=== PATIENT | female | born 1950 | race Caucasian/White ===

== ENCOUNTER → 2018-01-12 11:51 | Outpatient (CLI) | payer MEDICARE, MEDICAID, SELFPAY ==
[2018-01-12 12:30] LABS: Add Manual Diff / Slide Review NO; Basophils Percent Auto 0.6 % (0-2); Eosinophils Percent Auto 2.6 % (2-4); Hematocrit 44.4 % (36-46); Hemoglobin 14.8 g/dL (12.0-16.0); Lymphocytes Percent Auto 18.3 % (25-40); Mean Corpuscular HGB Conc 33.4 % (30-36); Mean Corpuscular Hemoglobin 28.8 PG (26-34); Mean Corpuscular Volume 86.1 fL (80-100); Monocytes Percent Auto 9.4 % (3-14); Neutrophils Absolute Auto 5400 /uL (3000-5900); Neutrophils Percent Auto 69.1 % (50-75); Platelet Count 293 X10^3/uL (150-400); Red Blood Cell Count 5.16 X10^6/uL (4.0-5.2); Red Cell Distribution Width 15.3 % (11.6-14.8); White Blood Cell Count 7.8 X10^3/uL (4.5-11.0)
[2018-01-12 12:51] LABS: Alanine Aminotransferase 25 IU/L (9-52); Albumin Globulin Ratio 1.3 (1.0-2.8); Alkaline Phosphatase 114 U/L (38-126); Aspartate Aminotransferase 17 IU/L (14-36); BUN Creatinine Ratio 21.4 (6-22); Bilirubin Total 0.6 mg/dL (0.2-1.3); Blood Urea Nitrogen 15 mg/dL (7-17); Calcium 9.7 mg/dL (8.4-10.2); Carbon Dioxide 28 mmol/L (22-32); Chloride 105 mmol/L (98-107); Estimated Glomerular Filt Rate > 60.0 mL/min (>60); Glucose 106 mg/dL (80-110); HEMOLYSIS < 15 (0-50); Potassium 4.3 mmol/L (3.4-5.1); Sodium 142 mmol/L (137-145)
[2018-01-12 13:16] LABS: TSH w/ Reflex to FT4 2.33 uIU/mL (0.47-4.68)
== END ==
PROVIDERS: PCP Family Medicine; Visit Provider Family Medicine
DX: K04.7 Periapical abscess without sinus (principal); R11.2 Nausea with vomiting, unspecified; R23.2 Flushing
CPT/HCPCS: 36415; 80053; 84443; 85025

== ENCOUNTER → 2018-01-13 09:56 | Outpatient (CLI) | payer MEDICARE, MEDICAID, SELFPAY ==
--- NOTE | 2018-01-13 09:58 | DI.US.S_ITS ---
PROCEDURE: US ABDOMEN COMPLETE INDICATIONS: Abdominal pain TECHNIQUE: Real-time scanning was performed of the abdominal and retroperitoneal organs, with image documentation. COMPARISON: [facility], [place], PET/CT SKULL BASE TO MID THIGH, 10/11/2016, 9:15. [facility], [place], ABDOMEN COMPLETE, 10/11/2016, 7:49. [facility], CT, CHEST/ABD/PEL WITHOUT CONTRAST, 09/11/2016, 12:57. FINDINGS: Liver: Liver is normal in size and homogeneous in echotexture. Solid, hypoechoic mass present within the lateral aspect of the left hepatic lobe measuring 2.1 x 1.9 x 1.5 cm. Gallbladder: Mild amount of sludge and probable gravel noted within the gallbladder. No other wall thickening. Biliary ducts: Intrahepatic bile ducts are non-dilated. Extrahepatic bile duct caliber measures 5.0 mm. Normal is 6-7 mm or less in diameter, or 10 mm or less post-cholecystectomy. Pancreas: Visualized portions of the pancreas are sonographically normal. Spleen: Spleen is normal in size and homogeneous in echotexture. Kidneys: Kidneys are normal in size and echotexture. Right kidney measures 10.4 cm long; left kidney measures 10.1 cm long. No hydronephrosis or nephrolithiasis. No solid masses. Aorta: Visualized aorta is normal in caliber at less than 3 cm. Iliacs: Proximal common iliac arteries are normal in caliber at less than 2.5 cm. IVC: Intrahepatic inferior vena cava is patent. Miscellaneous: No free abdominal fluid. IMPRESSION: 1. Solid hypoechoic lateral left hepatic lobe mass measuring up to 2.1 cm. Neoplastic process cannot be excluded. Recommend hepatic protocol CT or MRI for further assessment. 2. Gallbladder sludge and gravel present. Dictated by: Calderon Whatley [facility] Interpreted: Liberty Meehan MD on 01/13/2018 at 12:58 Approved by: Liberty Meehan M.D. on 01/13/2018 at 17:56
== END ==
PROVIDERS: Family Provider Family Medicine; PCP Family Medicine; Visit Provider Family Medicine
DX: R10.9 Unspecified abdominal pain (principal); K76.9 Liver disease, unspecified
CPT/HCPCS: 76700

== ENCOUNTER 2018-01-25 06:44 | Emergency (ER) | payer MEDICARE, MEDICAID, SELFPAY ==
[2018-01-25 06:56] VITALS: BP 137/86; PULSE 94; RESP 18; TEMP 36.9; O2SAT 98; BMI 27.3
--- NOTE | 2018-01-25 07:28 | ED.EAR ---
HPI - Ear Problem General Chief complaint: Ear Stated complaint: RIGHT EAR PAIN Time Seen by Provider: 01/25/18 07:06 Source: patient Mode of arrival: ambulatory Limitations: no limitations History of Present Illness HPI Narrative: Patient is a 67-year-old female who presents with right ear pain. She says it has been hurting for the last 2 days she feels like it is closing off is tender to touch. No drainage though she did try to put cotton in her ear to keep open. No cough no fever no sore throat no chest pain MD Complaint: ear pain Related Data Home Medications Medication Instructions Recorded Confirmed cephalexin 500 mg capsule 500 mg PO QID 01/12/18 01/12/18 Previous Rx's Medication Instructions Recorded ciprofloxacin-hydrocortisone 2 drop EAR-RIGHT BID #10 ml 01/25/18 Allergies Allergy/AdvReac Type Severity Reaction Status Date / Time codeine [CODEINE] Allergy Severe throat Verified 01/12/18 11:09 swelling Sulfa (Sulfonamide Allergy Mild Verified 01/12/18 11:09 Antibiotics) [SULFA (SULFONAMIDE ANTIBIOTICS)] morphine [MORPHINE] AdvReac Mild racing Verified 01/12/18 11:09 heart ANTIDEPRESSANTS Allergy Mild RACING Uncoded 01/12/18 11:09 HEART, MOUTH SWELLS eggs Allergy Mild Uncoded 01/12/18 11:09 SALMON Allergy Mild Uncoded 01/12/18 11:09 Review of Systems Review of Systems GENERAL: Denies chills,fever HEENT: See HPI RESPIRATORY: Denies dyspnea, cough, wheezing CARDIOVASCULAR: Denies chest pain, palpitations GASTROINTESTINAL: Denies nausea, vomiting MUSCULOSKELETAL: Denies extremity pain, injury SKIN: No rash, no laceration, no pruritus NEUROLOGIC: Denies weakness, dizziness, headache, numbness 8 point review of systems is negative except for those stated above and HPI PFSH Medical History Neurofibromatosis, type I (von Recklinghausen's disease) (Chronic) Primary thyroid malignancy (Chronic) Surgical History History of section (Resolved) History of hysterectomy (Resolved ~1977) History of surgery (Resolved 2009) History of surgery (Resolved) Social History (Reviewed 01/25/18 @ 07:29 by YAIR Arndt Smoking Status: Never smoker Exam Initial Vital Signs Initial Vital Signs: Vital Signs Temperature 98.4 F 01/25/18 06:56 Pulse Rate 94 H 01/25/18 06:56 Respiratory Rate 18 01/25/18 06:56 Blood Pressure 137/86 H 01/25/18 06:56 Pulse Oximetry 98 01/25/18 06:56 GENERAL: Well-appearing, well-nourished and in no acute distress. EARS: see below CARDIOVASCULAR: peripheral pulses in tact, cap refill <2 sec RESPIRATORY: No respiratory distress, speaks in full sentences without difficulty EXTREMITIES: Normal range of motion, no clubbing or edema. Neurovascularly intact NEUROLOGICAL: Cranial nerves II through XII grossly intact. Normal gait and speech. SKIN: Warm, dry, no petechiae, no rashes or lesions. HENMT Ears: hearing grossly normal bilaterally, TM normal on the left, mastoids normal, EAC abnormal (Right) otic discharge purulent and unable to visualize TM on the right Course Vital Signs - 8 hr 01/25/18 06:56 01/25/18 07:45 Temperature 98.4 F Pulse Rate 94 H 87 Respiratory Rate 18 16 Blood Pressure 137/86 H 133/93 H Pulse Oximetry 98 98 Discharge Plan Departure Patient Disposition: Home, Self-Care Clinical Impression: Acute otitis externa of right ear Discharge Date/Time: 01/25/18 07:45 Interventions: ED Discharge Assessment Last Done: 01/25/18 07:45 Instructions: DI for Otitis Externa Activity Restrictions/Additional Instructions: *You have been diagnosed with right ear infection *What to do: Do not put anything in the ear *Continue to take medications as directed At your request you're medications have been faxed to [facility] in [place] Cipro otic solution 2 drops right ear twice a day for 7 days *Follow up with your primary care provider in 2-3 days *Return to ER if you should have any new, worsening or concerning symptoms Prescriptions: New ciprofloxacin-hydrocortisone 0.2-1 % drops,suspension 2 drop EAR-RIGHT BID Qty: 10 RF: 0 No Action cephalexin 500 mg capsule 500 mg PO QID RF: 0 Referrals: Mecca Pickett MD [Primary Care Provider] -
[2018-01-25 07:45] VITALS: BP 133/93; PULSE 87; RESP 16; O2SAT 98
== END 2018-01-25 07:45 | disposition home or self-care (01) ==
PROVIDERS: Emergency Provider Emergency Medicine; Family Provider Family Medicine; PCP Family Medicine
DX: H60.501 Unspecified acute noninfective otitis externa, right ear (principal)
CPT/HCPCS: 99282

== ENCOUNTER → 2018-02-03 08:18 | Outpatient (CLI) | payer MEDICARE, MEDICAID, SELFPAY ==
[2018-02-03 09:27] LABS: BUN Creatinine Ratio 18.6 (6-22); Blood Urea Nitrogen 13 mg/dL (7-17); Estimated Glomerular Filt Rate > 60.0 mL/min (>60)
== END ==
PROVIDERS: PCP Family Medicine; Visit Provider Family Medicine
DX: Z01.812 Encounter for preprocedural laboratory examination (principal)
CPT/HCPCS: 36415; 82565; 84520

== ENCOUNTER → 2018-02-06 09:34 | Outpatient (CLI) | payer MEDICARE, MEDICAID, SELFPAY ==
--- NOTE | 2018-02-06 14:01 | DI.CT.S_ITS ---
PROCEDURE: CT ABDOMEN WO/W CON INDICATIONS: liver mass found on US TECHNIQUE: 4 phase scanning was performed. Non-contrast 5 mm axial sections acquired from the diaphragm to the iliac crests. Following the administration of intravenous contrast, 5 mm thick arterial-phase, portal venous-phase, and 5-minute delayed phase images were acquired through the liver. 5 mm thick coronal and sagittal reformats were performed. For radiation dose reduction, the following was used: automated exposure control, adjustment of mA and/or kV according to patient size. COMPARISON: [facility], CT, ABDOMEN/PELVIS WITH CONTRAST, 09/20/2009, 8:21. [facility], US, US ABDOMEN COMPLETE, 01/13/2018, 10:31. [facility], [place], PET/CT SKULL BASE TO MID THIGH, 10/11/2016, 9:15. [facility], CT, THORAX WITHOUT CONTRAST, 10/13/2015, 13:48. [facility], [place], ABDOMEN COMPLETE, 10/11/2016, 7:49. [facility], CT, CHEST/ABD/PEL WITHOUT CONTRAST, 09/11/2016, 12:57. FINDINGS: Image quality: Excellent. Lung bases: Lung bases are clear. Heart size is normal. Liver: The liver is normal in size. There is a 3 mm low attenuation in the posterior aspect of the superior right hepatic lobe on series 3 image 16. It is too small to definitively characterize. The liver is mildly enlarged measuring 17.7 cm in craniocaudal dimension. The previously identified mass within the lateral left hepatic lobe is not visualized. Other solid organs: Gallbladder is unremarkable. Biliary system is non dilated. Pancreas is normal in morphology. Spleen is normal in size and enhancement. No adrenal nodules. Both kidneys demonstrate normal size and enhancement, without hydronephrosis or nephrolithiasis. Nodes and vessels: Low attenuation focus adjacent to the left renal artery is again identified and is unchanged. 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 Aorta and inferior vena cava are normal in size. Bowel and peritoneum: Unenhanced bowel loops are normal in caliber. No free fluid or air. Bones: No suspicious bony lesions. No vertebral body compression fractures. Miscellaneous: No ventral hernias. IMPRESSION: 1. No hepatic mass is identified to correlate to ultrasound finding. 6 month ultrasound interval followup is recommended. 2. 3 mm low attenuation hepatic focus is present in the right lobe, too small to definitively characterize. This could represent a small cyst. It is not identified on prior exams. Dictated by: Terrie Pineda M.D. on 02/06/2018 at 22:00 Approved by: Terrie Pineda M.D. on 02/06/2018 at 22:11
== END ==
PROVIDERS: Family Provider Family Medicine; PCP Family Medicine; Visit Provider Family Medicine
DX: R16.0 Hepatomegaly, not elsewhere classified (principal)
CPT/HCPCS: 74170; Q9967

== ENCOUNTER → 2018-02-06 12:07 | Oncology outpatient (ONC) | payer MEDICARE, MEDICAID, SELFPAY ==
[2018-02-06] MEDS: methylPREDNISolone 125 MG/2 ML VIAL 40 MG IV (12:34)
[2018-02-06] MEDS: diphenhydrAMINE 50 MG/ML VIAL IV (12:34)
[2018-02-06 12:39] VITALS: BP 133/68; PULSE 73; RESP 16; TEMP 36.7; O2SAT 94
== END ==
PROVIDERS: Family Provider Family Medicine; PCP Family Medicine; Visit Provider Family Medicine
DX: R16.0 Hepatomegaly, not elsewhere classified (principal)
CPT/HCPCS: 74170; 96374; 96375; 99281; J1200; J2930; Q9967

== ENCOUNTER → 2018-03-30 11:29 | Outpatient (CLI) | payer MEDICARE, MEDICAID, SELFPAY ==
--- NOTE | 2018-03-30 11:31 | DI.RAD.S_ITS ---
PROCEDURE: XR CHEST 2V INDICATIONS: shortness of breath TECHNIQUE: 2 views of the chest were acquired. COMPARISON: [facility], , CHEST 2 VIEW, 04/14/2015, 12:32. FINDINGS: Surgical changes and devices: None. Lungs and pleura: No pleural effusions or pneumothorax. Lungs are clear. Mediastinum: Mediastinal contours are normal. Heart size is normal. Bones and chest wall: No suspicious bony abnormalities. Soft tissues appear unremarkable. IMPRESSION: No acute cardiopulmonary pathology. Dictated by: Liam Hayward M.D. on 03/30/2018 at 13:28 Approved by: Liam Hayward M.D. on 03/30/2018 at 13:28
== END ==
PROVIDERS: PCP Internal Medicine; Visit Provider Internal Medicine
DX: R06.02 Shortness of breath (principal); Q85.00 Neurofibromatosis, unspecified
CPT/HCPCS: 71046

== ENCOUNTER → 2018-04-01 11:06 | Outpatient (CLI) | payer MEDICARE, MEDICAID, SELFPAY ==
[2018-04-05 16:14] LABS: Fecal Immunochemical Test NOT DETECTED
== END ==
PROVIDERS: PCP Internal Medicine; Visit Provider Internal Medicine
DX: Z12.11 Encounter for screening for malignant neoplasm of colon (principal)
CPT/HCPCS: 82274

== ENCOUNTER 2018-09-02 14:50 | Emergency (ER) | payer MEDICARE, MEDICAID, SELFPAY ==
--- NOTE | 2018-09-02 | DI.RAD.S_ITS ---
PROCEDURE: XR TIBIA FIBULA RT 2V INDICATIONS: FALL WITH PAIN TECHNIQUE: 2 views of the tibia and fibula were acquired. COMPARISON: None. FINDINGS: Bones: Lucency in the lateral malleolus compatible with nondisplaced fracture. Soft tissues: No suspicious soft tissue calcifications or masses. IMPRESSION: Nondisplaced distal fibular fracture. Dictated by: Halie Draper MD, PhD on 09/02/2018 at 15:18 Approved by: Halie Draper MD, PhD on 09/02/2018 at 15:18
[2018-09-02 14:54] VITALS: BP 138/87; PULSE 95; RESP 14; TEMP 36.3; O2SAT 95; BMI 25.7
--- NOTE | 2018-09-02 14:57 | DI.RAD.S_ITS ---
PROCEDURE: XR ANKLE LT MIN 3V INDICATIONS: fall,with pain TECHNIQUE: 3 views of the ankle were acquired. COMPARISON: None. FINDINGS: Bones: Lucency involving the distal fibula concerning for nondisplaced fracture. Ankle mortise is normally aligned. No suspicious bony lesions. Soft tissues: No tibiotalar joint effusion. Achilles tendon appears normal. Lateral soft tissue swelling is noted and ligamentous injury cannot be excluded. IMPRESSION: Lucency noted in the distal fibula which may represent nondisplaced fracture. Dictated by: Halie Draper MD, PhD on 09/02/2018 at 15:16 Approved by: Halie Draper MD, PhD on 09/02/2018 at 15:17
--- NOTE | 2018-09-02 16:10 | ED_ITS ---
HPI - Extremity Injury (Lower) <ALEJA Johnson - Last Filed: 09/02/18 21:58> General Chief Complaint: Extremity Injury, Lower Stated Complaint: LEFT FT THINKS IT'S BROKEN Time Seen by Provider: 09/02/18 15:56 Source: patient Mode of arrival: wheelchair Limitations: no limitations History of Present Illness HPI Narrative: 68-year-old female with history of neurofibromatosis and is a nonsmoker here for complaint of pain to her left lateral ankle. She states that she was cleaning snow off of her car when she slipped causing her rolled her left ankle. She denies any trauma to left ankle. She knows any trauma from a fall. No head injury. No nausea or vomiting. No loss of consciousness. She reports increased pain with motion of the left ankle. No open lesions. No other concerns or complaints MD complaint: ankle injury Related Data Home Medications Medication Instructions Recorded Confirmed Elderberry 1 dose PO DAILY 09/02/18 09/02/18 I-Caps 1 cap PO DIRECTED 09/02/18 09/02/18 Vitamin B 1 dose PO DAILY 09/02/18 09/02/18 ascorbic acid (vitamin C) 1 tab PO DAILY 09/02/18 09/02/18 Allergies Allergy/AdvReac Type Severity Reaction Status Date / Time codeine [CODEINE] Allergy Severe throat Verified 09/02/18 14:54 swelling Sulfa (Sulfonamide Allergy Mild Verified 09/02/18 14:54 Antibiotics) [SULFA (SULFONAMIDE ANTIBIOTICS)] Iodinated Contrast- Oral and Allergy Verified 09/02/18 14:54 IV Dye morphine [MORPHINE] AdvReac Mild racing Verified 09/02/18 14:54 heart ANTIDEPRESSANTS Allergy Mild RACING Uncoded 03/30/18 10:47 HEART, MOUTH SWELLS eggs Allergy Mild Uncoded 03/30/18 10:47 SALMON Allergy Mild Uncoded 03/30/18 10:47 Review of Systems <ALEJA Johnson - Last Filed: 09/02/18 21:58> Constitutional Denies chills, Denies fever(s), Denies lethargy and Denies weakness Eyes Denies change in vision, Denies eye discharge, Denies irritation and Denies loss of vision ENT Ears, Nose, Mouth, and Throat: Denies change in voice, Denies neck pain and Denies sore throat Cardiovascular Denies chest pain, Denies irregular heart rhythm, Denies lightheadedness, Denies palpitations, Denies dyspnea, Denies dyspnea on exertion and Denies orthopnea Respiratory Denies cough, Denies dyspnea, Denies dyspnea on exertion and Denies wheezing Gastrointestinal Gastrointestinal: Denies abdominal pain, Denies change in bowel habits, Denies diarrhea, Denies nausea and Denies vomiting Genitourinary Denies hematuria, Denies flank pain, Denies urinary incontinence and Denies urinary urgency Musculoskeletal Denies neck pain Comments: Left ankle pain and swelling Integumentary/Breasts Denies pruritus, Denies erythema, Denies rash and Denies wounds Neurologic Denies confusion, Denies loss of vision and Denies weakness Psychiatric Denies anxiety, Denies confusion, Denies depression, Denies homicidal ideation and Denies suicidal ideation Endocrine Denies palpitations Hematologic/Lymphatic Denies easy bruising Allergic/Immunologic Denies wheezing PFSH <ALEJA Johnson - Last Filed: 09/02/18 21:58> Medical History Neurofibromatosis, type I (von Recklinghausen's disease) (Chronic) Primary thyroid malignancy (Chronic) Surgical History History of section (Resolved) History of hysterectomy (Resolved ~1977) History of surgery (Resolved 2009) History of surgery (Resolved) Social History Smoking Status: Never smoker Social History Smoking Status: Never smoker Exam <ALEJA Johnson - Last Filed: 09/02/18 21:58> Initial Vital Signs Initial Vital Signs: Vital Signs Temperature 97.4 F L 09/02/18 14:54 Pulse Rate 95 H 09/02/18 14:54 Respiratory Rate 14 09/02/18 14:54 Blood Pressure 138/87 09/02/18 14:54 Pulse Oximetry 95 09/02/18 14:54 Const General: cooperative and well developed Nutritional Appearance: well nourished Orientation: alert, awake, oriented x3 and not confused HENMT Mouth: oral mucosae normal and mucous membranes abnormal Eyes Conjunctivae: conjunctivae normal Sclera: sclerae normal Pupils: PERRL EOM: EOM intact bilaterally Resp Effort & Inspection: normal respiratory effort, able to speak in complete sentences, no respiratory distress and no use of accessory muscles Auscultation: clear to auscultation bilaterally, no rales, no rhonchi and no wheezes Cardio Rate: regular rate Rhythm: regular rhythm Heart Sounds: no click, no gallops, no murmurs and no rubs Pulses: normal peripheral pulses Skin General: no rashes or lesions noted, No jaundice and No petechiae Neuro General: alert, oriented x3, gait normal and no focal motor deficits Speech: speech normal Extrem Other: Swelling to the lateral malleolus of the left ankle. No open lesions. No deformities. Distal sensation is intact. Distal range of motion is intact. Distal pulses are intact. <Bryce Downey DO - Last Filed: 09/03/18 20:51> Initial Vital Signs Initial Vital Signs: Vital Signs Temperature 97.4 F L 09/02/18 14:54 Pulse Rate 95 H 09/02/18 14:54 Respiratory Rate 14 09/02/18 14:54 Blood Pressure 138/87 09/02/18 14:54 Pulse Oximetry 95 09/02/18 14:54 Procedures <ALEJA Johnson - Last Filed: 09/02/18 21:58> Orthopedic Splinting/Casting Injury #1: Side: left Lower Extremity Injury Location: ankle Lower Extremity Immobilizer: stirrup splint Other Orthopedic Equipment: crutches Post splinting neuro exam: intact Post splinting vascular exam: intact Placed by: Nursing Additional Comments: Stirrup splint applied by nursing staff was applied appropriate. Distal CMS is intact Course <ALEJA Johnson - Last Filed: 09/02/18 21:58> Orders Ordered: Discontinued Medications Ibuprofen (Advil) 400 mg PO NOW ONE Stop: 09/02/18 16:50 Last Admin: 09/02/18 17:19 Dose: 400 mg Vital Signs - 8 hr 09/02/18 14:54 09/02/18 17:50 Temperature 97.4 F L 97.9 F Pulse Rate 95 H 79 Respiratory Rate 14 17 Blood Pressure 138/87 Blood Pressure [Left Arm] 131/77 Pulse Oximetry 95 95 <Bryce Downey DO - Last Filed: 09/03/18 20:51> Orders Ordered: Discontinued Medications Ibuprofen (Advil) 400 mg PO NOW ONE Stop: 09/02/18 16:50 Last Admin: 09/02/18 17:19 Dose: 400 mg Vital Signs - 8 hr 09/02/18 14:54 09/02/18 17:50 Temperature 97.4 F L 97.9 F Pulse Rate 95 H 79 Respiratory Rate 14 17 Blood Pressure 138/87 Blood Pressure [Left Arm] 131/77 Pulse Oximetry 95 95 MDM - Extremity Injury (Lower) <ALEJA Johnson - Last Filed: 09/02/18 21:58> Imaging Data Ankle x-ray: Radiologist's impression: [address] [address] XRay Report Signed Patient: Coty Fraser [facility]#: [id number] : 1950Acct:[id number] Age/Sex: 68 / FDate of Service: 09/02/18 Loc: ED Accession Number: [id number] Procedure: XR ankle LT min 3V Ordering Provider: Bryce Downey D.O. PROCEDURE: XR ANKLE LT MIN 3V INDICATIONS: fall,with pain TECHNIQUE: 3 views of the ankle were acquired. COMPARISON: None. FINDINGS: Bones: Lucency involving the distal fibula concerning for nondisplaced fracture. Ankle mortise is normally aligned. No suspicious bony lesions. Soft tissues: No tibiotalar joint effusion. Achilles tendon appears normal. Lateral soft tissue swelling is noted and ligamentous injury cannot be excluded. IMPRESSION: Lucency noted in the distal fibula which may represent nondisplaced fracture. Dictated by: Halie Draper MD, PhD on 09/02/2018 at 15:16 Approved by: Halie Draper MD, PhD on 09/02/2018 at 15:17 Left tib-fib : Radiologist's impression: [address] [address] XRay Report Signed Patient: Coty Fraser [facility]#: [id number] : 1950Acct:[id number] Age/Sex: 68 / FDate of Service: 09/02/18 Loc: ED Accession Number: [id number] Procedure: XR tibia fibula LT 2V Ordering Provider: Fredi,KODY PROCEDURE: XR TIBIA FIBULA RT 2V INDICATIONS: FALL WITH PAIN TECHNIQUE: 2 views of the tibia and fibula were acquired. COMPARISON: None. FINDINGS: Bones: Lucency in the lateral malleolus compatible with nondisplaced fracture. Soft tissues: No suspicious soft tissue calcifications or masses. IMPRESSION: Nondisplaced distal fibular fracture. Dictated by: Halie Draper MD, PhD on 09/02/2018 at 15:18 Approved by: Halie Draper MD, PhD on 09/02/2018 at 15:18 [facility] Narrative Medical decision making narrative: X-ray the left ankle and the left tib-fib area was obtained and shows lucency to the distal fibula indicating nondisplaced fracture. She is placed in a stirrup splint for comfort and support along with crutches for nonweightbearing. She is referred to Orthopedics for further evaluation. Patient call the office at number provided schedule follow-up appointment here in the next few days. Ice and elevation help with any swelling. [id number] ibuprofen as needed for any discomfort. For any worsening symptoms return emergency room. Discharge Plan Departure Patient Disposition: Home Clinical Impression: Fracture of distal end of fibula Qualifiers: Encounter type: initial encounter Fracture type: closed Fracture morphology: other fracture Laterality: left Qualified Code(s): S82.832A - Other fracture of upper and lower end of left fibula, initial encounter for closed fracture Discharge Date/Time: 09/02/18 18:27 Interventions: ED Discharge Assessment Last Done: 09/02/18 18:27 Instructions: DI for Ankle Fracture Activity Restrictions/Additional Instructions: X-ray of the left ankle was obtained and shows a fracture to the lateral aspect of the ankle. You have been placed in a splint for comfort and support use as directed. Use crutches as directed for nonweightbearing. Use [id number] ibuprofen as needed for any discomfort. Ice and elevation help with any swelling. Call Orthopedics at number provided to schedule follow-up appointment here in the next few days. For any worsening symptoms return to the emergency room. Prescriptions: No Action Elderberry 1 dose PO DAILY RF: 0 I-Caps 1 cap PO DIRECTED RF: 0 Vitamin B liquid 1 dose PO DAILY RF: 0 ascorbic acid (vitamin C) 1 tab PO DAILY RF: 0 Referrals: [facility] [Provider Group] Lashaun Hollins MD [Primary Care Provider] - <Bryce Downey DO - Last Filed: 09/03/18 20:51> Cosign ED Attending Antoni Attestation: I was immediately available in the department for consultation. Documentation has been reviewed. I agree with assessment and plan.
[2018-09-02] MEDS: IBUPROFEN 400 MG TABLET PO (17:19)
[2018-09-02 17:50] VITALS: BP 131/77; PULSE 79; RESP 17; TEMP 36.6; O2SAT 95
--- NOTE | 2018-09-02 18:26 | PC.NURSE ---
pt unable to support weight on crutches. pt tolerated walker well, demonstrated with steady balance.
--- NOTE | 2018-09-02 18:28 | PC.NURSE ---
patti in to see splint.
== END 2018-09-02 18:27 | disposition home or self-care (01) ==
PROVIDERS: Emergency Provider Nurse Practitioner Family; Family Provider Family Medicine; PCP Family Medicine
DX: S82.832A Other fracture of upper and lower end of left fibula, initial encounter for closed fracture (principal); W01.0XXA Fall on same level from slipping, tripping and stumbling without subsequent striking against object, initial encounter
CPT/HCPCS: 29515; 73590; 73610; 99282; 99283

== ENCOUNTER → 2018-09-24 09:31 | Outpatient (CLI) | payer MEDICARE, MEDICAID, SELFPAY ==
[2018-09-24 10:26] LABS: Add Manual Diff / Slide Review NO; Basophils Absolute Auto 0 /uL (0-100); Basophils Percent Auto 0.7 % (0-2); Eosinophils Absolute Auto 300 /uL (0-450); Eosinophils Percent Auto 3.8 % (2-4); Hematocrit 46.3 % (36-46); Hemoglobin 15.1 g/dL (12.0-16.0); Lymphocytes Absolute Auto 1700 /uL (1100-4500); Lymphocytes Percent Auto 25.6 % (25-40); Mean Corpuscular HGB Conc 32.7 % (30-36); Mean Corpuscular Hemoglobin 28.1 PG (26-34); Mean Corpuscular Volume 85.8 fL (80-100); Monocytes Absolute Auto 700 /uL (0-900); Monocytes Percent Auto 9.9 % (3-14); Neutrophils Absolute Auto 4100 /uL (1500-7000); Platelet Count 328 X10^3/uL (150-400); Red Blood Cell Count 5.39 X10^6/uL (4.0-5.2); White Blood Cell Count 6.8 X10^3/uL (4.5-11.0)
[2018-09-24 10:45] LABS: Vitamin D 25 Hydroxy (D3) 56.9 ng/mL (30.0-100.0)
[2018-09-24 10:59] LABS: Free T3, Triiodothyronine Free 3.68 pg/mL (2.77-5.27); Free T4, Direct Thyroxine 1.14 ng/dL (0.78-2.19)
[2018-09-24 11:13] LABS: Thyroid Stimulating Hormone 3.11 uIU/mL (0.47-4.68)
[2018-09-24 11:14] LABS: Alanine Aminotransferase 20 IU/L (9-52); Albumin 4.2 g/dL (3.5-5.0); Albumin Globulin Ratio 1.3 (1.0-2.8); Alkaline Phosphatase 94 U/L (38-126); Aspartate Aminotransferase 19 IU/L (14-36); BUN Creatinine Ratio 24.4 (6-22); Bilirubin Total 0.5 mg/dL (0.2-1.3); Blood Urea Nitrogen 22 mg/dL (7-17); Calcium 9.6 mg/dL (8.4-10.2); Carbon Dioxide 27 mmol/L (22-32); Chloride 106 mmol/L (98-107); Estimated Glomerular Filt Rate > 60.0 mL/min (>60); Globulin 3.2 g/dL (1.7-4.1); Glucose 100 mg/dL (80-110); HEMOLYSIS 16 (0-50); Potassium 4.5 mmol/L (3.4-5.1); Sodium 141 mmol/L (137-145); Total Protein 7.4 g/dL (6.3-8.2)
[2018-09-26 16:23] LABS: Anti Thyroglobulin Antibody < 1 IU/mL (< 2); Progesterone < 0.5 ng/mL; Thyroid Peroxidase Antibodies 3 IU/mL (< 9)
[2018-09-29 12:38] LABS: Apolipoprotein B 138 mg/dL (49-103); Cholesterol, Total 231 mg/dL (<200); HDL Cholesterol 48 mg/dL (>50); Lipoprotein (a) 145 nmol/L (<75); Non- HDL Cholesterol 183 (<130); Triglycerides 136 mg/dL (<150)
== END ==
PROVIDERS: PCP Family Medicine; Visit Provider Family Medicine
DX: E04.1 Nontoxic single thyroid nodule (principal); R53.83 Other fatigue; Z13.220 Encounter for screening for lipoid disorders
CPT/HCPCS: 36415; 80053; 82306; 83695; 84144; 84439; 84443; 84481; 85025; 86376; 86800

== ENCOUNTER → 2018-10-07 09:57 | Outpatient (CLI) | payer MEDICARE, MEDICAID, SELFPAY | PROVIDERS: PCP Family Medicine; Visit Provider Family Medicine | DX: M81.0 Age-related osteoporosis without current pathological fracture (principal); Z78.0 Asymptomatic menopausal state; Z82.62 Family history of osteoporosis | CPT/HCPCS: 77080 ==

== ENCOUNTER → 2019-02-01 09:02 | Outpatient (CLI) | payer MEDICARE, MEDICAID, SELFPAY ==
--- NOTE | 2019-02-01 09:05 | DI.US.S_ITS ---
PROCEDURE: US THYROID INDICATIONS: HX OF THYROID NODULE, RE-EVAL TECHNIQUE: Real-time scanning was performed of the thyroid gland, with image documentation. COMPARISON: [facility] Ultrasound [facility], [place], THYROID,NECK OR HEAD SONOGRAM, 06/05/2010, 15:33. [facility], [place], US GUIDED BX THYROID (FNA), 04/24/2015, 13:13. [facility], [place], THYROID, 02/02/2015, 8:51. FINDINGS: Right: Thyroid lobe measures 5.2 x 2.6 x 3.1 cm, and is homogeneous in echotexture. Left: Thyroid lobe measures 5.9 x 3.1 x 2.7 cm, and is homogenous in echotexture. Isthmus: 2.0 mm thick. Nodule number: 1 Location: Isthmus Size: 2.9 x 1.8 x 3.4 cm compared to 3.0 x 1.7 x 3.4 cm. Composition: Solid Echogenicity: Isoechoic Shape: wider than tall. Margins: Smooth Echogenic foci: None Total points: 3 ACR TI-RADS category: 3 Nodule number: 2 Location: Right superior lobe Size: 1.9 x 1.4 x 2.2 cm compared to 2.2 x 1.4 x 2.6 cm. Composition: Solid Echogenicity: Isoechoic Shape: wider than tall. Margins: Smooth Echogenic foci: None Total points: 3 ACR TI-RADS category: 3 Nodule number: 3 Location: Right superior lateral Size: 2.0 x 0.9 x 1.6 cm compared to 1.7 x 0.9 x 1.9 cm. Composition: Solid Echogenicity: Isoechoic Shape: wider than tall. Margins: Smooth Echogenic foci: None Total points: 3 ACR TI-RADS category: 3 Nodule number: 4 Location: Right inferior mid lobe Size: 2.0 x 2.5 x 2.7 cm compared to 2.4 x 1.8 x 2.6 cm. Composition: Spongiform Echogenicity: Hypoechoic Shape: wider than tall. Margins: Smooth Echogenic foci: None Total points: 2 ACR TI-RADS category: 2 Nodule number: 5 Location: Left superior lateral Size: 1.8 x 1.2 x 1.1 cm compared to 1.5 x 1.1 x 1.5 cm Composition: Solid Echogenicity: Isoechoic Shape: wider than tall. Margins: Smooth Echogenic foci: None Total points: 3 ACR TI-RADS category: 3 Nodule number: 6 Location: Left superior medial Size: 2.3 x 1.4 x 1.4 cm compared to 2.3 x 1.3 x 1.6 cm Composition: Solid Echogenicity: Isoechoic Shape: wider than tall. Margins: Smooth Echogenic foci: Microcalcifications Total points: 5 ACR TI-RADS category: 4. Nodule number: 7 Location: Left inferior lateral Size: 1.8 x 1.7 x 1.4 cm compared to 1.7 x 1.3 x 1.6 cm Composition: Spongiform Echogenicity: Hypoechoic Shape: wider than tall. Margins: Smooth Echogenic foci: Macrocalcifications Total points: 2 ACR TI-RADS category: 2 IMPRESSION: 1. Lesions #1, 2, 3 and 5 are classified as TI RADS 3. The larger lesions have been stable since 2009, while smaller foci demonstrated stability since 2014. Isthmus lesion was biopsied in 2014. Stability over 5 years is recommended. 2. Lesions #4 and 7 are classified as TI RADS 2 and no additional followup is recommended. 3. Lesion #6 is classified as TI-RADS 4. It has been stable since 2009. Recommendations are for lesions greater than 1.5 cm. Given stability since 2009, clinical discretion is recommended as to whether to FNA. ACR TI-RADS definitions and recommendations: TI-RADS 1 (benign): 0 points. FNA not needed. TI-RADS 2 (not suspicious): 2 points. FNA not needed. TI-RADS 3 (mildly suspicious): 3 points. * FNA if 2.5 cm or larger, follow up if 1.5 cm or larger (at 1, 3, and 5 years). TI-RADS 4 (moderately suspicious): 4-6 points. * FNA if 1.5 cm or larger, follow up if 1 cm or larger (at 1, 2, 3, and 5 years). TI-RADS 5 (highly suspicious): 7 points or more. * FNA if 1 cm or larger, follow up if 0.5 cm or larger (every year for 5 years). Dictated by: Terrie Pineda M.D. on 02/01/2019 at 11:41 Approved by: Terrie Pineda M.D. on 02/01/2019 at 11:59
== END ==
PROVIDERS: PCP Family Medicine; Visit Provider Family Medicine
DX: E04.2 Nontoxic multinodular goiter (principal)
CPT/HCPCS: 76536

== ENCOUNTER → 2019-03-16 16:46 | Outpatient (CLI) | payer MEDICARE, MEDICAID, SELFPAY ==
--- NOTE | 2019-03-16 16:52 | DI.RAD.S_ITS ---
PROCEDURE: XR CHEST 2V INDICATIONS: Worsening VASQUES, patient with NF 1 TECHNIQUE: 2 views of the chest were acquired. COMPARISON: [facility], CR, XR CHEST 2V, 03/30/2018, 11:39. FINDINGS: Surgical changes and devices: None. Lungs and pleura: Lungs are clear. No pleural effusions or pneumothorax. Mediastinum: Mediastinal contours are normal. Heart size is normal. Bones and chest wall: No suspicious bony abnormalities. Soft tissues appear unremarkable. IMPRESSION: No acute cardiopulmonary pathology. Dictated by: Liam Hayward M.D. on 03/16/2019 at 17:31 Approved by: Liam Hayward M.D. on 03/16/2019 at 17:31
== END ==
PROVIDERS: PCP Family Medicine; Visit Provider Family Medicine
DX: R06.09 Other forms of dyspnea (principal)
CPT/HCPCS: 71046

== ENCOUNTER → 2019-03-18 09:55 | Outpatient (CLI) | payer MEDICARE, MEDICAID, SELFPAY ==
--- NOTE | 2019-03-18 09:58 | DI.CT.S_ITS ---
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 1 mm lung window, 5 mm thick coronal and sagittal and 7 mm axial MIP reformats were then acquired. For radiation dose reduction, the following was used: automated exposure control, adjustment of mA and/or kV according to patient size. COMPARISON: [facility], CT, THORAX WITHOUT CONTRAST, 04/19/2010, 10:22. [facility], CT, CHEST/ABD/PEL WITHOUT CONTRAST, 09/11/2016, 12:57. [facility], CT, CT ABDOMEN WO/W CON, 02/06/2018, 13:59. FINDINGS: Image quality: Excellent. Lungs and pleura: There is a right medial apical low-density soft tissue mass measuring approximately 2.1 x 1.7 cm in the axial plane, stable size compared to prior studies. Occasional, thin-walled pulmonary parenchymal cysts are present, with the largest measuring 7 mm at the left lung base, approximately 9 mm in the left lateral lung apex, and 1.8 cm in the left infrahilar left upper lobe. No significant changes with honeycombing in the lungs. There is mild cylindrical bronchiectasis diffusely. In the upper lobes bilaterally, numerous subpleural tiny patches of hazy groundglass opacity are present. A 4 mm solid nodule is present in subpleural right middle lobe, chronic, benign. No dense consolidations. No acute air space opacities. No pleural effusions or pneumothorax. Mediastinum: Heart size is normal. No pericardial effusion. No mediastinal adenopathy by size criteria. Thoracic aorta and central pulmonary arteries are normal in size. The esophageal wall proximally appears circumferentially thickened. No hiatal hernia. Bones and chest wall: There are 2 small nodules in the subpleural fat, one along either side of the spine at the T10 level. No other visible spinal or paraspinal neurofibromas. Widely scattered small dermal, subdermal, and subcutaneous nodules. Largest visible nodule is in the left posterior flank measuring about 1.9 cm. No suspicious bony lesions. No vertebral body compression fractures. No axillary or supraclavicular adenopathy by size criteria. Thyroid gland is enlarged and heterogeneous. There is hypo-dense isthmus nodule measuring 2.7 x 2.8 cm. A few punctate calcifications are seen in each lobe. A surgical clip is present in the left clavicular region and posterior to the left. Aerated. Abdomen: Visualized upper abdomen demonstrates a chronic 2.5 cm fluid density soft tissue nodule in the left upper retroperitoneum, potentially arising from the left adrenal gland body. This has been present for multiple years with minimal change in size or morphology. There are surgical clips in the right abdomen. IMPRESSION: 1. 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 2. 2.1 cm right medial apical subpleural low density mass suggest neurofibroma is also stable over multiple prior studies. 3. Subtle hazy subpleural groundglass opacities are chronic, nonprogressive, and nonspecific. No dense consolidations. 4. Dermal, subdermal, paraspinal nodules consistent with neurofibromas as described. 5. Chronic thickening of the esophagus, potentially related to esophagitis. 6. 2.5 cm left upper retroperitoneal, likely adrenal nodule/cyst. Fluctuating in size compared to prior studies, but chronic. Dictated by: Starla Vazquez M.D. on 03/18/2019 at 12:41 Approved by: Starla Vazquez M.D. on 03/18/2019 at 13:16
== END ==
PROVIDERS: Family Provider Family Medicine; PCP Family Medicine; Visit Provider Family Medicine
DX: R06.09 Other forms of dyspnea (principal)
CPT/HCPCS: 71250

== ENCOUNTER → 2019-04-12 13:25 | Outpatient (CLI) | payer MEDICARE, MEDICAID, SELFPAY ==
--- NOTE | 2019-04-19 11:18 | PM.PFT.1 ---
Pulmonary Function Test Referral & Results Date Patient Seen: 04/12/19 Requesting provider: Lashaun Hollins Results: The spirometry demonstrates an FVC of 2.59 L which is 82% of predicted. The FEV1 was measured at 2.34 L which is 98% of predicted. The FEV1/FVC ratio was 91 which is 119% of predicted. Following the administration of bronchodilator there was no appreciable change to above normal numbers. Lung volumes show an SVC of 2.80 L which is 94% of predicted. The diffusing capacity was measured at 13.65 which is 53% of predicted. No hemoglobin value was provided, so no correction for potential anemia could be made, if appropriate. The maximum voluntary ventilation was normal Interpretation: This study demonstrates normal spirometry but significantly reduced diffusing capacity suggesting significant disease at the capillary alveolar level
== END ==
PROVIDERS: PCP Family Medicine; Visit Provider Family Medicine
DX: R06.09 Other forms of dyspnea (principal)
CPT/HCPCS: 94060; 94729

== ENCOUNTER → 2019-09-22 08:44 | Outpatient (CLI) | payer MEDICARE, MEDICAID, SELFPAY ==
--- NOTE | 2019-09-22 08:55 | DI.CT.S_ITS ---
PROCEDURE: CT ABDOMEN PELVIS WO CON INDICATIONS: RUQ abdominal pain, neurofibroma and hx of many abd tumors TECHNIQUE: Noncontrast 5 mm thick sections acquired from the diaphragms to the symphysis. 5 mm coronal and sagittal reformats were then performed. For radiation dose reduction, the following was used: automated exposure control, adjustment of mA and/or kV according to patient size. COMPARISON: [facility], [place], PET/CT SKULL BASE TO MID THIGH, 10/11/2016, 9:15. [facility], CT, CHEST/ABD/PEL WITHOUT CONTRAST, 09/11/2016, 12:57. [facility], CT, ABDOMEN/PELVIS WITH CONTRAST, 09/20/2009, 8:21. [facility], CT, CT ABDOMEN WO/W CON, 02/06/2018, 13:59. [facility], CT, ABDOMEN/PELVIS WITHOUT CONTRAS, 05/14/2012, 11:48. FINDINGS: Image quality: Excellent. ABDOMEN: Lung bases: Lung bases are clear. 2 mm nodule seen in the anterior right lung base on image 1/3. Heart size is normal. Solid organs: Liver is normal in size. Gallbladder negative. Pancreas is normal in contours. Spleen is normal in size. No adrenal nodules. Kidneys are normal in size, without hydronephrosis or nephrolithiasis. Peritoneum and bowel: Unenhanced bowel loops demonstrate normal wall thickness and caliber. No free fluid or air. Surgical clips incidentally noted. Nodes and vessels: No retroperitoneal or mesenteric adenopathy by size criteria. Aorta and inferior vena cava are normal in caliber. Left para-aortic cystic-appearing lesion is again noted and grossly unchanged in appearance and size since 10/11/16 Miscellaneous: No ventral hernias. PELVIS: Genitourinary: Bladder wall thickness is normal. Miscellaneous: No inguinal hernias or adenopathy. Bones: No suspicious bony lesions. No vertebral body compression fractures. Diffuse spondylosis and facet arthropathy. Dextroscoliosis. Transitional lumbosacral vertebra with chronic left-sided pseudoarthrosis. IMPRESSION: Unchanged appearance of left para-aortic cystic lesion since 2017 Incidental colonic diverticulosis. Nonspecific 2 mm anterior right basilar pulmonary nodule. This could be followed up with one year interval chest CT to document long-term stability and exclude early metastatic/malignant nodule. Dictated by: Vladimir Guzman M.D. on 09/22/2019 at 9:42 Approved by: Vladimir Guzman M.D. on 09/22/2019 at 9:54
== END ==
PROVIDERS: PCP Family Medicine; Referring Provider Family Medicine; Visit Provider Family Medicine
DX: R10.11 Right upper quadrant pain (principal); Q85.00 Neurofibromatosis, unspecified; K57.90 Diverticulosis of intestine, part unspecified, without perforation or abscess without bleeding; R91.1 Solitary pulmonary nodule; I77.9 Disorder of arteries and arterioles, unspecified
CPT/HCPCS: 74176

== ENCOUNTER → 2020-03-04 09:38 | Outpatient (CLI) | payer MEDICARE, MEDICAID, SELFPAY ==
[2020-03-06 09:51] LABS: COVID19 Sendout Not Detected (Not Detected)
== END ==
PROVIDERS: PCP Family Medicine; Visit Provider Physician Assistant
DX: Z03.818 Encounter for observation for suspected exposure to other biological agents ruled out (principal)
CPT/HCPCS: 87635

== ENCOUNTER → 2020-04-04 10:05 | Outpatient (CLI) | payer MEDICARE, MEDICAID, SELFPAY ==
[2020-04-05 19:17] LABS: COVID19 Sendout Not Detected (Not Detect)
== END ==
PROVIDERS: PCP Family Medicine; Visit Provider Physician Assistant
DX: Z11.59 Encounter for screening for other viral diseases (principal)
CPT/HCPCS: 87635

== ENCOUNTER → 2020-10-27 12:21 | Outpatient (CLI) | payer MEDICARE, MEDICAID, SELFPAY ==
[2020-10-27] MEDS: COVID-19 VACC, Ad26(JANSSEN)/PF 0.5 ML IM (12:38)
== END ==
PROVIDERS: PCP Family Medicine; Visit Provider Internal Medicine
DX: Z23 Encounter for immunization (principal)
CPT/HCPCS: 0031A; 91303

== ENCOUNTER → 2021-03-21 09:03 | Outpatient (CLI) | payer MEDICARE, MEDICAID, SELFPAY ==
[2021-03-21 09:53] LABS: Add Manual Diff / Slide Review NO; Basophils Absolute Auto 0 /uL (0-100); Basophils Percent Auto 0.6 % (0-2); Eosinophils Absolute Auto 300 /uL (0-450); Eosinophils Percent Auto 4.7 % (2-4); Hematocrit 47.3 % (36-46); Hemoglobin 15.7 g/dL (12.0-16.0); Lymphocytes Absolute Auto 1800 /uL (1100-4500); Lymphocytes Percent Auto 25.8 % (25-40); Mean Corpuscular HGB Conc 33.1 % (30-36); Mean Corpuscular Hemoglobin 28.7 PG (26-34); Mean Corpuscular Volume 86.7 fL (80-100); Monocytes Absolute Auto 600 /uL (0-900); Monocytes Percent Auto 8.8 % (3-14); Neutrophils Absolute Auto 4200 /uL (1500-7000); Neutrophils Percent Auto 60.1 % (50-75); Platelet Count 267 X10^3/uL (150-400); Red Blood Cell Count 5.46 X10^6/uL (4.0-5.2); Red Cell Distribution Width 14.6 % (11.6-14.8)
[2021-03-21 10:08] LABS: Alanine Aminotransferase 12 IU/L (<35); Albumin 4.1 g/dL (3.5-5.0); Albumin Globulin Ratio 1.5 (1.0-2.8); Alkaline Phosphatase 122 U/L (38-126); Aspartate Aminotransferase 16 IU/L (14-36); BUN Creatinine Ratio 22.4 (6-22); Bilirubin Total 0.6 mg/dL (0.2-1.3); Blood Urea Nitrogen 17 mg/dL (7-17); Calcium 9.7 mg/dL (8.4-10.2); Carbon Dioxide 26 mmol/L (22-32); Chloride 107 mmol/L (98-107); Cholesterol 262 mg/dL (140-199); Estimated Glomerular Filt Rate > 60.0 mL/min (>60); Globulin 2.7 g/dL (1.7-4.1); Glucose 95 mg/dL (80-110); HDL Cholesterol 56 mg/dL (40-60); HEMOLYSIS < 15 (0-50); Hemoglobin A1C% w Est Avg Glu 5.6 % (4.0-6.0); LDL Cholesterol Calculated 178 mg/dL (<100); Potassium 4.3 mmol/L (3.4-5.1); Sodium 140 mmol/L (137-145); Total Protein 6.8 g/dL (6.3-8.2); Triglycerides 141 mg/dL (35-150)
[2021-03-21 10:37] LABS: TSH w/ Reflex to FT4 4.29 uIU/mL (0.47-4.68)
[2021-03-21 10:55] LABS: Vitamin B12 318 pg/mL (239-931)
== END ==
PROVIDERS: PCP Family Medicine; Referring Provider Family Medicine; Visit Provider Family Medicine
DX: Q85.00 Neurofibromatosis, unspecified (principal); E16.2 Hypoglycemia, unspecified; Z13.220 Encounter for screening for lipoid disorders; F32.9 Major depressive disorder, single episode, unspecified; E53.8 Deficiency of other specified B group vitamins
CPT/HCPCS: 36415; 80053; 80061; 82607; 83036; 84443; 85025

== ENCOUNTER → 2022-05-22 14:09 | Outpatient (CLI) | payer MEDICARE, MEDICAID, SELFPAY ==
[2022-05-22 14:58] LABS: Influenza A - CEPHEID Flu A NEGATIVE (NEGATIVE); Influenza B - CEPHEID Flu B NEGATIVE (NEGATIVE); Respiratory Syncytial Virus Negative (Negative)
[2022-05-22 15:03] LABS: COVID-19 CEPHEID 4-PLEX PCR Negative (Negative)
== END ==
PROVIDERS: PCP Family Medicine; Visit Provider Nurse Practitioner Family
DX: R50.9 Fever, unspecified (principal)
CPT/HCPCS: 0241U

== ENCOUNTER → 2023-06-03 08:42 | Outpatient (CLI) | payer MEDICARE, MEDICAID, SELFPAY ==
[2023-06-03 10:15] LABS: Add Manual Diff / Slide Review NO; Basophils Absolute Auto 0 /uL (0-100); Basophils Percent Auto 0.7 % (0-2); Eosinophils Absolute Auto 300 /uL (0-450); Eosinophils Percent Auto 4.4 % (2-4); Hematocrit 45.6 % (36-46); Hemoglobin 15.2 g/dL (12.0-16.0); Lymphocytes Absolute Auto 1700 /uL (1100-4500); Lymphocytes Percent Auto 24.3 % (25-40); Mean Corpuscular HGB Conc 33.3 % (30-36); Mean Corpuscular Volume 86.9 fL (80-100); Monocytes Absolute Auto 700 /uL (0-900); Neutrophils Absolute Auto 4200 /uL (1500-7000); Neutrophils Percent Auto 60.6 % (50-75); Platelet Count 261 X10^3/uL (150-400); Red Blood Cell Count 5.24 X10^6/uL (4.0-5.2); Red Cell Distribution Width 14.8 % (11.6-14.8); White Blood Cell Count 6.9 X10^3/uL (4.5-11.0)
[2023-06-03 10:54] LABS: Alanine Aminotransferase 17 IU/L (<35); Albumin 3.7 g/dL (3.5-5.0); Albumin Globulin Ratio 1.3 (1.0-2.8); Alkaline Phosphatase 109 U/L (38-126); Aspartate Aminotransferase 18 IU/L (14-36); BUN Creatinine Ratio 26.4 (6-22); Bilirubin Total 0.6 mg/dL (0.2-1.3); Blood Urea Nitrogen 19 mg/dL (7-17); Calcium 9.8 mg/dL (8.4-10.2); Carbon Dioxide 24 mmol/L (22-32); Chloride 110 mmol/L (98-107); Cholesterol 249 mg/dL (140-199); Estimated Glomerular Filt Rate > 60 mL/min (>60); Globulin 2.8 g/dL (1.7-4.1); Glucose 94 mg/dL (80-110); HDL Cholesterol 52 mg/dL (40-60); HEMOLYSIS < 15 (0-50); LDL Cholesterol Calculated 174 mg/dL (<100); Potassium 4.4 mmol/L (3.4-5.1); Sodium 140 mmol/L (137-145); Total Protein 6.5 g/dL (6.3-8.2); Triglycerides 113 mg/dL (35-150)
[2023-06-03 11:06] LABS: TSH w/ Reflex to FT4 1.79 uIU/mL (0.47-4.68)
== END ==
PROVIDERS: PCP Family Medicine; Referring Provider Family Medicine; Visit Provider Family Medicine
DX: R53.83 Other fatigue (principal); E78.5 Hyperlipidemia, unspecified
CPT/HCPCS: 36415; 80053; 80061; 84443; 85025

== ENCOUNTER 2024-06-03 03:00 | Inpatient (IN) | payer MEDICARE, MEDICAID, SELFPAY ==
[2024-06-03] VITALS (10 sets, daily range): BP systolic 128–167; BP diastolic 73–96; PULSE 71–115; RESP 14–23; TEMP 36.4–36.8; O2SAT 91–99; BMI 25.9
--- NOTE | 2024-06-03 03:10 | DI.CT.S_ITS ---
PROCEDURE: CT ABDOMEN PELVIS WO CON INDICATIONS: N/V MIDEPIGASTRIC PAIN, HX NEUROFIBROMATOSIS TECHNIQUE: Axial sections were acquired from the lung bases to the pubic symphysis. Coronal and sagittal reformats were performed. For radiation dose reduction, the following was used: automated exposure control, adjustment of mA and/or kV according to patient size. COMPARISON: [facility], CT, CT ABDOMEN PELVIS WO CON, 09/22/2019, 8:52. FINDINGS: Image quality: Diagnostic Lower chest: Unremarkable lung bases. Small right middle lobe nodule is similar to 2020. Normal heart size. Similar eventration of the left hemidiaphragm. Liver: No contour deforming mass. Solid organs are not well assessed without IV contrast Gallbladder and biliary system: Unremarkable, nondilated Pancreas: Jbsr-dm-[id number] atrophy. No ductal dilation Spleen: Nonenlarged Adrenals: Nodule on or just adjacent to the left adrenal measuring 2 cm, similar size compared to 2019 Kidneys: No contour deforming mass or hydronephrosis Vessels and lymph nodes: Atherosclerotic calcifications. No abdominal aortic aneurysm. No pathologic lymph nodes by size criteria. Bowel and peritoneum: Small bowel obstruction, transition is in the mid to lower abdomen, just left of the midline No pathologic ascites. There colonic diverticula. Scattered upper abdominal surgical clips Body wall: Unremarkable Pelvis: Under distended bladder. Hysterectomy. Bones: No acute or suspicious osseous finding. Degenerative changes. Rightward spinal curvature. IMPRESSION: Small bowel obstruction with transition in the mid to lower abdomen just left of the midline. Other incidental and stable findings above. Agree with prelim report. Dictated by: Mariano Wilcox M.D. on 06/03/2024 at 8:05 Approved by: Mariano Wilcox M.D. on 06/03/2024 at 8:12
--- NOTE | 2024-06-03 03:12 | ED.ABDPAIN ---
HPI - Abdominal Pain General Chief Complaint: Abdominal Pain Stated Complaint: abd pain Time Seen by Provider: 06/03/24 03:02 History of Present Illness HPI narrative: 73-year-old female with history of neurofibromatosis type 1, macular degeneration, reported hx of lung disease (unspecified) presents by private vehicle from home for approximately 8 hours severe midepigastric pain with nausea. Patient states that the pain has continued to increase intensity since its onset at approximately 7:00 p.m. yesterday. Reports previous history of bleeding neurofibromas in her small intestine many years ago, which subsequently required surgery and removal of approximately 6 in of bowel, but this feels different. She was not sure when she last passed flatus. Related Data Home Medications Medication Instructions Recorded Confirmed Elderberry 1 dose PO DAILY 09/02/18 06/02/23 I-Caps 1 cap PO DIRECTED 09/02/18 06/02/23 Vitamin B 1 dose PO DAILY 09/02/18 06/02/23 ascorbic acid (vitamin C) 1 tab PO DAILY 09/02/18 06/02/23 multivitamin 1 cap PO DAILY 10/27/18 06/02/23 Previous Rx's Medication Instructions Recorded ofloxacin 0.3 % ear drops 5 drp otic (ear) BID #10 mL 08/28/20 lorazepam 1 mg tablet 1 mg PO ONCE PRN prior to MRI #2 09/28/21 tabs blood sugar diagnostic (Blood #50 ea 11/13/21 Glucose Test strips) blood-glucose meter (Blood Glucose #1 ea 11/13/21 Monitoring kit) lancets #100 ea 11/13/21 [address] parking See Rx Instructions .Route 03/04/22 .COMPLEX #1 unit ipratropium 20 mcg-albuterol 100 1 puff inhalation QID PRN dyspnea 04/21/23 mcg/actuation mist for inhalation #4 grams (Combivent Respimat) simvastatin 20 mg tablet 20 mg PO DAILY #90 tabs 06/04/23 Allergies Allergy/AdvReac Type Severity Reaction Status Date / Time codeine [CODEINE] Allergy Severe throat Verified 06/02/23 10:32 swelling Sulfa (Sulfonamide Allergy Mild Verified 06/02/23 10:32 Antibiotics) [SULFA (SULFONAMIDE ANTIBIOTICS)] Iodinated Contrast Media Allergy Verified 06/02/23 10:32 [Iodinated Contrast- Oral and IV Dye] Gadolinium-Containing AdvReac Intermediate Headache Verified 06/02/23 10:32 Contrast Medi morphine [MORPHINE] AdvReac Mild racing Verified 06/02/23 10:32 heart ANTIDEPRESSANTS Allergy Mild RACING Uncoded 06/02/23 10:32 HEART, MOUTH SWELLS eggs Allergy Mild Uncoded 06/02/23 10:32 SALMON Allergy Mild Uncoded 06/02/23 10:32 Patient History Medical History Dysphagia Diffuse lung disease Primary thyroid malignancy Neurofibromatosis, type I (von Recklinghausen's disease) Surgical History History of hysterectomy (~1977) History of section History of surgery History of surgery (2009) Social History marital status: number of children: 2 household members: spouse lives independently: Yes caregiver/support person: No housing: house Smoking Status: Never smoker second hand exposure: No alcohol intake: current substance use type: does not use Smoking Status: Never smoker alcohol intake frequency: holidays/special occasions only Substance Use Type: does not use Exam Initial Vital Signs Initial Vital Signs: Vital Signs Temperature 97.5 F L 06/03/24 03:13 Pulse Rate 83 06/03/24 03:13 Respiratory Rate 18 06/03/24 03:13 Blood Pressure 156/91 H 06/03/24 03:13 Pulse Oximetry 99 06/03/24 03:13 Oxygen Delivery Method Room Air 06/03/24 03:13 Const: Awake, alert, uncomfortable, in pain, nontoxic appearing Cardiac: regular rate, regular rhythm RESP: unlabored, clear bilaterally, no wheezing GI: Soft, mild distension, generalized tenderness to deep palpation without rebound or guarding, no peritoneal signs Skin: Warm, Dry, intact, no rashes, generalized neurofibromas on body Neuro: AO x3, CN II-XII grossly intact, moves all extremities Course Orders Ordered: ED Orders 06/03/24 03:09 EKG-12 Lead Stat 06/03/24 03:10 CT abdomen pelvis wo con Stat 06/03/24 03:18 CBC Auto Diff [Complete Blood Count AUTO DIFF] Stat CMP [Comprehensive Metabolic Panel] Stat Lactate (Lactic Acid) Stat Lipase Stat Discontinued Medications Hydromorphone HCl (Hydromorphone 1 Mg Inj) 1 mg IV NOW ONE Stop: 06/03/24 03:10 Last Admin: 06/03/24 03:24 Dose: 1 mg Documented By: Ondansetron HCl (Ondansetron 4 Mg/2 Ml Inj) 4 mg IV NOW ONE Stop: 06/03/24 03:10 Last Admin: 06/03/24 03:24 Dose: 4 mg Documented By: Vital Signs Vital signs: Vital Signs - 8 hr 06/03/24 03:13 Temperature 97.5 F L Pulse Rate 83 Respiratory Rate 18 Blood Pressure 156/91 H Pulse Oximetry 99 Oxygen Delivery Method Room Air MDM - Abdominal Pain Lab Data 06/03/24 03:18 06/03/24 03:18 Labs: Lab Results 06/03/24 Range/Units 03:18 WBC 10.5 (4.5-11.0) X10^3/uL RBC 5.63 H (4.0-5.2) X10^6/uL Hgb 16.4 H (12.0-16.0) g/dL Hct 49.2 H (36-46) % MCV 87.4 (80-100) fL MCH 29.2 (26-34) PG MCHC 33.4 (30-36) % RDW 14.9 H (11.6-14.8) % Plt Count 284 (150-400) X10^3/uL Neut % (Auto) 65.6 (50-75) % Lymph % (Auto) 22.3 L (25-40) % [place] % (Auto) 9.5 (3-14) % Eos % (Auto) 2.1 (2-4) % Baso % (Auto) 0.5 (0-2) % Neut # (Auto) 6900 (5442-0703) /uL Lymph # (Auto) 2300 (4626-5115) /uL [place] # (Auto) 1000 H (0-900) /uL Eos # (Auto) 200 (0-450) /uL Baso # (Auto) 100 (0-100) /uL Sodium 140 (137-145) mmol/L Potassium 3.9 (3.4-5.1) mmol/L Chloride 109 H (98-107) mmol/L Carbon Dioxide 24 (22-32) mmol/L BUN 19 H (7-17) mg/dL Creatinine 0.84 (0.52-1.04) mg/dL Estimated GFR > 60 (>60) mL/min BUN/Creatinine Ratio 22.6 H (6-22) Glucose 137 H (80-110) mg/dL Lactate 1.5 (0.7-2.1) mmol/L Calcium 10.3 H (8.4-10.2) mg/dL Total Bilirubin 0.7 (0.2-1.3) mg/dL AST 31 (14-36) IU/L ALT 31 (<35) IU/L Alkaline Phosphatase 138 H (38-126) U/L Total Protein 7.4 (6.3-8.2) g/dL Albumin 4.0 (3.5-5.0) g/dL Globulin 3.4 (1.7-4.1) g/dL Albumin/Globulin Ratio 1.2 (1.0-2.8) Lipase 63 (23-300) U/L [facility] Narrative Medical decision making narrative: Uncomfortable but nontoxic-appearing female with 1 day of abdominal pain with nausea. She states that she does not remember the last time she passed gas. Abdomen soft, generally tender to deep palpation without peritoneal signs. With patient's age as well as medical history of neurofibromatosis and previous bowel surgeries labs and CT imaging will be ordered. Labs show WBC count 10.5, hemoglobin 16.4, platelet count 284, sodium 140, potassium 3.9, creatinine 0.84, normal liver enzymes. Preliminary read of CT abdomen and pelvis without contrast (patient reports allergy to contrast dye) shows small bowel obstruction. Patient's pain is well controlled with IV Dilaudid. She was receiving IV fluids. Contacted Dr. Abdullahi of General surgery, who requested medicine adamant and we will see as consult. Patient was in agreement to admission at this time. Discharge Plan Departure Patient Disposition: Admitted as Observation Clinical Impression: Small bowel obstruction Admit Date/Time: 06/03/24 04:57
[2024-06-03] MEDS: HYDROMORPHONE 1 MG INJ IV (03:24)
[2024-06-03] MEDS: ONDANSETRON 4 MG/2 ML INJ IV ×5 (03:24→20:38)
[2024-06-03 03:27] LABS: Add Manual Diff / Slide Review NO; Basophils Absolute Auto 100 /uL (0-100); Basophils Percent Auto 0.5 % (0-2); Eosinophils Absolute Auto 200 /uL (0-450); Eosinophils Percent Auto 2.1 % (2-4); Hematocrit 49.2 % (36-46); Hemoglobin 16.4 g/dL (12.0-16.0); Lymphocytes Absolute Auto 2300 /uL (1100-4500); Lymphocytes Percent Auto 22.3 % (25-40); Mean Corpuscular HGB Conc 33.4 % (30-36); Mean Corpuscular Hemoglobin 29.2 PG (26-34); Mean Corpuscular Volume 87.4 fL (80-100); Monocytes Absolute Auto 1000 /uL (0-900); Monocytes Percent Auto 9.5 % (3-14); Neutrophils Absolute Auto 6900 /uL (1500-7000); Neutrophils Percent Auto 65.6 % (50-75); Platelet Count 284 X10^3/uL (150-400); Red Blood Cell Count 5.63 X10^6/uL (4.0-5.2); Red Cell Distribution Width 14.9 % (11.6-14.8); White Blood Cell Count 10.5 X10^3/uL (4.5-11.0)
[2024-06-03 03:36] LABS: Alanine Aminotransferase 31 IU/L (<35); Albumin Globulin Ratio 1.2 (1.0-2.8); Alkaline Phosphatase 138 U/L (38-126); Aspartate Aminotransferase 31 IU/L (14-36); BUN Creatinine Ratio 22.6 (6-22); Bilirubin Total 0.7 mg/dL (0.2-1.3); Blood Urea Nitrogen 19 mg/dL (7-17); Calcium 10.3 mg/dL (8.4-10.2); Carbon Dioxide 24 mmol/L (22-32); Chloride 109 mmol/L (98-107); Estimated Glomerular Filt Rate > 60 mL/min (>60); Globulin 3.4 g/dL (1.7-4.1); Glucose 137 mg/dL (80-110); HEMOLYSIS < 15 (0-50); Lactate (Lactic Acid) 1.5 mmol/L (0.7-2.1); Lipase 63 U/L (23-300); Potassium 3.9 mmol/L (3.4-5.1); Sodium 140 mmol/L (137-145); Total Protein 7.4 g/dL (6.3-8.2)
--- NOTE | 2024-06-03 03:36 | PC.NURSE ---
Medicated pt with PRN for pain/nausea. compliance field technician in room. Taken to CT via halie.
[2024-06-03] MEDS: SODIUM CHLORIDE 0.9% 1,000 ML 1000 ML IV (05:09)
[2024-06-03] MEDS: METOCLOPRAMIDE 10 MG/2 ML INJ IV ×2 (05:43→14:51)
[2024-06-03 06:05] LABS: Bacteria Urine Few (2-10); Mucus Urine 1+ (Negative); RBC Urine 0-1/HPF (0-5/HPF); Squamous Epithelial Cell Urine 0-1 /HPF (0-5/HPF); Urine Volume 10mL (spun); WBC Urine 1-5/HPF (0-5/HPF)
[2024-06-03 06:06] LABS: Culture Indicated Urine Specimen Cultured
[2024-06-03] MEDS: DEXTROSE 5%-0.45% NS 1,000 ML 100 ML IV ×2 (06:23→16:12)
[2024-06-03] MEDS: PANTOPRAZOLE 40 MG VIAL IV (08:13)
--- NOTE | 2024-06-03 08:45 | DI.RAD.S_ITS ---
PROCEDURE: XR GASTROGRAFIN CHALLENGE COMPARISON: [facility], CT, CT ABDOMEN PELVIS WO CON, 06/03/2024, 3:20. INDICATIONS: sbo Findings and impression: Moderately distended loops of small bowel again seen, better assessed on CT. The contrast is mostly within the dilated loops of bowel, but a small amount is seen in the cecum at 4h. This is suggestive of high-grade but probably partial small bowel obstruction. Consider obtaining a 24 hour image to assess progression. Osseous degenerative changes. Dictated by: Mariano Wilcox M.D. on 06/03/2024 at 16:47 Approved by: Mariano Wilcox M.D. on 06/03/2024 at 16:49
--- NOTE | 2024-06-03 08:45 | PM.CALLCOV.1 ---
Call Coverage Note Note Date of Patient Contact: 06/03/24 Narrative of Care Provided: 73F previous abdominal surgery with SBO. No urgent findings indicative of surgical intervention -Gastrografin challenge ordered. -NPO -NGT if emesis or worsening nausea.
[2024-06-03] MEDS: HYDROMORPHONE 0.5 MG INJ IV ×2 (12:16→20:38)
--- NOTE | 2024-06-03 12:59 | PM.HP.1 ---
History of Present Illness History of Present Illness Date Patient Seen: 06/03/24 Chief complaint: abd pain Narrative: 73-year-old female with history of neurofibromatosis, esophageal stricture requiring multiple dilation procedures, hyperlipidemia, macular degeneration admitted as cross cover for Dr. Hollins. Patient presented to ER at approximately 3:00 a.m. this morning with report of 8 hours severe mid epigastric pain and nausea that had started around 7:00 p.m. that evening and continue to worsen. She has a history of bleeding neurofibromas in her small intestine years ago that required surgical removal of a portion of small bowel. Daughter, who was at bedside, reports patient has undergone 30-40 surgeries over the course of her life to remove neurofibromas in different parts of her body. ER workup notable for what WBC 10.5, hemoglobin 16.4, platelets 284, sodium 140, potassium 3.9, creatinine 0.84, LFTs normal. CT abdomen/pelvis revealed small bowel obstruction with transition in the mid to lower abdomen just left of the midline. Dr. Abdullahi (General Surgery) contacted from ER and recommended admission with surgical consultation. At time of initial evaluation daughter is at bedside awaiting patient transport for Gastrografin challenge imaging. Patient nauseous with moderate amount of vomiting oral contrast and bile. Reports pain adequately controlled with IV hydromorphone. [facility] Medical History Dysphagia Diffuse lung disease Primary thyroid malignancy Neurofibromatosis, type I (von Recklinghausen's disease) Surgical History History of hysterectomy (~1977) History of section History of surgery History of surgery (2009) Social History marital status: number of children: 2 household members: spouse lives independently: Yes caregiver/support person: No housing: house Smoking Status: Never smoker second hand exposure: No alcohol intake: never substance use type: does not use Meds Home Medications and Allergies Home Medications Medication Instructions Recorded Confirmed Type Elderberry 1 dose PO DAILY 09/02/18 06/02/23 History I-Caps 1 cap PO DIRECTED 09/02/18 06/02/23 History Vitamin B 1 dose PO DAILY 09/02/18 06/02/23 History ascorbic acid (vitamin C) 1 tab PO DAILY 09/02/18 06/02/23 History multivitamin 1 cap PO DAILY 10/27/18 06/02/23 History ofloxacin 0.3 % ear drops 5 drp otic (ear) BID #10 mL 08/28/20 06/02/23 Rx blood sugar diagnostic (Blood #50 ea 11/13/21 06/02/23 Rx Glucose Test strips) blood-glucose meter (Blood Glucose #1 ea 11/13/21 06/02/23 Rx Monitoring kit) lancets #100 ea 11/13/21 06/02/23 Rx disabled parking See Rx Instructions .Route 03/04/22 06/02/23 Rx .COMPLEX #1 unit ipratropium 20 mcg-albuterol 100 1 puff inhalation QID PRN dyspnea 04/21/23 06/03/24 Rx mcg/actuation mist for inhalation #4 grams (Combivent Respimat) simvastatin 20 mg tablet 20 mg PO DAILY #90 tabs 06/04/23 Rx Allergies Allergy/AdvReac Type Severity Reaction Status Date / Time codeine [CODEINE] Allergy Severe throat Verified 06/02/23 10:32 swelling Sulfa (Sulfonamide Allergy Mild Verified 06/02/23 10:32 Antibiotics) [SULFA (SULFONAMIDE ANTIBIOTICS)] Iodinated Contrast Media Allergy Verified 06/02/23 10:32 [Iodinated Contrast- Oral and IV Dye] Gadolinium-Containing AdvReac Intermediate Headache Verified 06/02/23 10:32 Contrast Medi morphine [MORPHINE] AdvReac Mild racing Verified 06/02/23 10:32 heart ANTIDEPRESSANTS Allergy Mild RACING Uncoded 06/02/23 10:32 HEART, MOUTH SWELLS eggs Allergy Mild Uncoded 06/02/23 10:32 SALMON Allergy Mild Uncoded 06/02/23 10:32 Review of Systems Review of Systems ROS: Yes All systems reviewed with the patient and are negative except as otherwise documented Exam Vital Signs (past 8 hours): - 06/03/24 05:00 06/03/24 05:00 06/03/24 06:00 Temperature 97.6 F Pulse Rate 75 82 Respiratory Rate 15 18 Blood Pressure 153/86 H 163/84 H Pulse Oximetry 94 92 Oxygen Flow Rate 06/03/24 12:00 Temperature 97.6 F Pulse Rate 84 Respiratory Rate 14 Blood Pressure 144/77 H Pulse Oximetry 96 Oxygen Flow Rate 0 Oxygen Delivery Method Nasal Cannula Oxygen Flow Rate 0 Narrative Exam Narrative: General: Pleasant, NAD HEENT: NC/AT, EOMI, moist membranes CV: RRR, normal S1-S2, no m/g/r Resp: CTAB, comfortable WOB Abd: Soft, nondistended, TTP epigastric region, unable to auscultate bowel sounds in left lower quadrant Ext: No edema Skin: Numerous cutaneous neurofibromas scattered over entire body including face, neck, arms, chest, legs Neuro: A&O x3, moves all extremities, no focal deficits Objective Labs 06/03/24 03:18 06/03/24 03:18 Labs: Laboratory Results - last 24 hr 06/03/24 06/03/24 03:18 05:40 WBC 10.5 RBC 5.63 H Hgb 16.4 H Hct 49.2 H MCV 87.4 MCH 29.2 MCHC 33.4 RDW 14.9 H Plt Count 284 Neut % (Auto) 65.6 Lymph % (Auto) 22.3 L Grant % (Auto) 9.5 Eos % (Auto) 2.1 Baso % (Auto) 0.5 Neut # (Auto) 6900 Lymph # (Auto) 2300 Grant # (Auto) 1000 H Eos # (Auto) 200 Baso # (Auto) 100 Sodium 140 Potassium 3.9 Chloride 109 H Carbon Dioxide 24 BUN 19 H Creatinine 0.84 Estimated GFR > 60 BUN/Creatinine Ratio 22.6 H Glucose 137 H Lactate 1.5 Calcium 10.3 H Total Bilirubin 0.7 AST 31 ALT 31 Alkaline Phosphatase 138 H Total Protein 7.4 Albumin 4.0 Globulin 3.4 Albumin/Globulin Ratio 1.2 Lipase 63 Urine RBC 0-1/hpf Urine WBC 1-5/hpf Ur Squamous Epith Cells 0-1 /hpf Urine Bacteria Few (2-10) H Urine Mucus 1+ H Ur Culture Indicated? Specimen cultured Vol Urine Centrifuged 10ml (spun) Assessment & Plan Assessment and plan (1) Small bowel obstruction: Status: Acute (2) Dysphagia: Qualifiers: Dysphagia type: unspecified Qualified Code(s): R13.10 - Dysphagia, unspecified Status: Acute (3) Neurofibromatosis: Status: Chronic Assessment & Plan narrative: 73-year-old female with history of neurofibromatosis, esophageal stricture requiring multiple dilation procedures. #SBO #neurofibromatosis Small-bowel obstruction confirmed on CT abdomen/pelvis. Surgery consulted with plan for Gastrografin challenge, additional intervention pending outcome of this evaluation. -NPO -IV hydromorphone q3h PRN for pain -IV Zofran PRN for nausea #dysphagia #h/o esophageal stricture Likely unrelated to SBO, though may be contributing to difficulty tolerating oral contrast as patient notes sensation of getting stuck in the back of her throat. -follow-up with GI outpatient Dispo: Acute care Diet: NPO GI ppx: PPI DVT ppx: SCDs Code: Full PCP: Gunjan MDM: Nathalia Nava (daughter, ) Time-Based Coding :: 30 minute spent with patient and on the chart (including review of chart, obtaining history, exam, reviewing outside data, placing orders, documenting exam and treatment plan, and counseling patient) on 06/03/2024. PROFEE Charge Codes Initial inpatient/observation care: 30363
--- NOTE | 2024-06-03 13:58 | P.CONS_ITS ---
History of Present Illness Consult details Date Patient Seen: 06/03/24 Time Patient Seen: 13:58 Chief complaint: abd pain Narrative: 73-year-old woman history neurofibromatosis previous abdominal surgery who is admitted with a small-bowel obstruction. She had progressive abdominal pain and distention with associated nausea. She has never had a prior small bowel obstruction. At admission afebrile hemodynamically stable and without leukocytosis. A CT abdomen pelvis demonstrates small bowel obstruction no free air or free fluid. Meds Home Medications and Allergies Home Medications Medication Instructions Recorded Confirmed Type Elderberry 1 dose PO DAILY 09/02/18 06/02/23 History I-Caps 1 cap PO DIRECTED 09/02/18 06/02/23 History Vitamin B 1 dose PO DAILY 09/02/18 06/02/23 History ascorbic acid (vitamin C) 1 tab PO DAILY 09/02/18 06/02/23 History multivitamin 1 cap PO DAILY 10/27/18 06/02/23 History ofloxacin 0.3 % ear drops 5 drp otic (ear) BID #10 mL 08/28/20 06/02/23 Rx blood sugar diagnostic (Blood #50 ea 11/13/21 06/02/23 Rx Glucose Test strips) blood-glucose meter (Blood Glucose #1 ea 11/13/21 06/02/23 Rx Monitoring kit) lancets #100 ea 11/13/21 06/02/23 Rx disabled parking See Rx Instructions .Route 03/04/22 06/02/23 Rx .COMPLEX #1 unit ipratropium 20 mcg-albuterol 100 1 puff inhalation QID PRN dyspnea 04/21/23 06/03/24 Rx mcg/actuation mist for inhalation #4 grams (Combivent Respimat) simvastatin 20 mg tablet 20 mg PO DAILY #90 tabs 06/04/23 Rx Allergies Allergy/AdvReac Type Severity Reaction Status Date / Time codeine [CODEINE] Allergy Severe throat Verified 06/02/23 10:32 swelling Sulfa (Sulfonamide Allergy Mild Verified 06/02/23 10:32 Antibiotics) [SULFA (SULFONAMIDE ANTIBIOTICS)] Iodinated Contrast Media Allergy Verified 06/02/23 10:32 [Iodinated Contrast- Oral and IV Dye] Gadolinium-Containing AdvReac Intermediate Headache Verified 06/02/23 10:32 Contrast Medi morphine [MORPHINE] AdvReac Mild racing Verified 06/02/23 10:32 heart ANTIDEPRESSANTS Allergy Mild RACING Uncoded 06/02/23 10:32 HEART, MOUTH SWELLS eggs Allergy Mild Uncoded 06/02/23 10:32 SALMON Allergy Mild Uncoded 06/02/23 10:32 Exam Vital Signs (past 8 hours): - 06/03/24 06:00 06/03/24 12:00 Temperature 97.6 F 97.6 F Pulse Rate 82 84 Respiratory Rate 18 14 Blood Pressure 163/84 H 144/77 H Pulse Oximetry 92 96 Oxygen Flow Rate 0 Oxygen Delivery Method Nasal Cannula Oxygen Flow Rate 0 Narrative Exam Narrative: General adult woman alert oriented no acute distress Abdomen soft mildly distended no peritonitis. Objective Labs 06/03/24 03:18 06/03/24 03:18 Labs: Laboratory Results - last 24 hr 06/03/24 06/03/24 03:18 05:40 WBC 10.5 RBC 5.63 H Hgb 16.4 H Hct 49.2 H MCV 87.4 MCH 29.2 MCHC 33.4 RDW 14.9 H Plt Count 284 Neut % (Auto) 65.6 Lymph % (Auto) 22.3 L Iron % (Auto) 9.5 Eos % (Auto) 2.1 Baso % (Auto) 0.5 Neut # (Auto) 6900 Lymph # (Auto) 2300 Iron # (Auto) 1000 H Eos # (Auto) 200 Baso # (Auto) 100 Sodium 140 Potassium 3.9 Chloride 109 H Carbon Dioxide 24 BUN 19 H Creatinine 0.84 Estimated GFR > 60 BUN/Creatinine Ratio 22.6 H Glucose 137 H Lactate 1.5 Calcium 10.3 H Total Bilirubin 0.7 AST 31 ALT 31 Alkaline Phosphatase 138 H Total Protein 7.4 Albumin 4.0 Globulin 3.4 Albumin/Globulin Ratio 1.2 Lipase 63 Urine RBC 0-1/hpf Urine WBC 1-5/hpf Ur Squamous Epith Cells 0-1 /hpf Urine Bacteria Few (2-10) H Urine Mucus 1+ H Ur Culture Indicated? Specimen cultured Vol Urine Centrifuged 10ml (spun) [facility] Medical History Dysphagia Diffuse lung disease Primary thyroid malignancy Neurofibromatosis, type I (von Recklinghausen's disease) Surgical History History of hysterectomy (~1977) History of section History of surgery History of surgery (2009) Social History marital status: number of children: 2 household members: spouse lives independently: Yes caregiver/support person: No housing: house Tobacco & Substance Use Smoking Status: Never smoker second hand exposure: No alcohol intake: never substance use type: does not use Assessment & Plan Assessment and plan (1) Small bowel obstruction: Status: Acute Assessment & Plan narrative: 73-year-old woman prior abdominal surgery history of neurofibromatosis admitted with a small-bowel obstruction. CT and labs reviewed. No immediate indication for surgical intervention. Proceeding with Gastrografin challenge. If if contrast is demonstrated within the colon on this study than start with clear liquid diet and advance as tolerated. If there is failure of contrast to pass into the colon at the completion of the study then we will need to consider for exploratory laparotomy. Time-Based Coding :: [TOTAL MINUTES] spent with patient and on the chart (including review of chart, obtaining history, exam, reviewing outside data, placing orders, documenting exam and treatment plan, and counseling patient) on [DATE].
--- NOTE | 2024-06-03 15:33 | CM.DANOTE ---
Initial DCP Assessment Note Pt is a 73 yo female, resident of [place], arrives w/abd pain/SBO. Admitted by medicine for further work up, surgery consulted and following closely- potential need for exlap. PCP: Lashaun Hollins Payer: [facility] MCR/KEENAN Reviewed chart, pt discussed in multidisciplinary rounds this morning and with bedside RN. Patient lives independently in [place], return home w/family anticipated upon discharge. Close outpatient follow up. CM team will plan to follow clinical course closely in case any DC needs or concerns arise. BRADEN Crum Discharge Planning/Care Management CM Discharge Assessment Start: 06/03/24 15:29 Freq: Status: Active Protocol: Document 06/03/24 15:29 NAN (Rec: 06/03/24 15:33 NAN [id number]) Discharge Planning Assessment Assigned Order Booker BRADEN Price DPOA/Assigned Designee Name dariela Damico Contact Information [phone] Advance Directives? No History Provided By Patient,Medical Record Prior Living Arrangements Apartment/Condo Type of transporation used prior to Drives own vehicle admit Independent with ADL's Yes Is patient alert and oriented? Yes: Admission assessment says Mild Dementia Barriers to Discharge No Discharge Plan Home Transportation Arrangement Family Referrals Initiated None needed
[2024-06-04] VITALS: BP 145/78; PULSE 110; RESP 16; TEMP 36.8; O2SAT 92
[2024-06-04 05:55] VITALS: BP 131/73; PULSE 99; RESP 16; TEMP 36.7; O2SAT 94
[2024-06-04 08:00] VITALS: BP 148/74; PULSE 96; RESP 18; TEMP 36.9; O2SAT 92
[2024-06-04 08:21] LABS: Blood Urea Nitrogen 19 mg/dL (7-17); Carbon Dioxide 24 mmol/L (22-32); Chloride 112 mmol/L (98-107); Estimated Glomerular Filt Rate > 60 mL/min (>60); Glucose 121 mg/dL (80-110); HEMOLYSIS < 15 (0-50); Sodium 143 mmol/L (137-145)
--- NOTE | 2024-06-04 09:11 | PM.PN.1 ---
Subjective Subjective Date Patient Seen: 06/04/24 Time Patient Seen: 08:15 Interval history: The pt was admitted yesterday due to severe abdominal pain and nausea. She was diagnosed with small bowel obstruction. The pt underwent gastrografin study yesterday, and reportedly with significant nausea/vomiting after drinking the fluid, however then was able to pass a lot of stool overnight. This morning, she reports feeling significantly improved. She denies any further abdominal pain, nausea, or vomiting. She was able to tolerate multiple cups of water overnight. She is quite happy with her progress. Exam Vital Signs (past 8 hours): - 06/04/24 05:55 06/04/24 08:00 Temperature 98.1 F 98.4 F Pulse Rate 99 H 96 H Respiratory Rate 16 18 Blood Pressure 131/73 148/74 H Pulse Oximetry 94 92 Oxygen Flow Rate 0 Oxygen Delivery Method Nasal Cannula Oxygen Flow Rate 0 Narrative Exam Narrative: Gen: NAD, sitting comfortably in bed, appears well CV: RRR, no murmurs Resp: clear to auscultation bilaterally Abd: soft, nontender, normoactive bowel sounds Ext: no edema Objective Labs 06/03/24 03:18 06/04/24 08:00 Labs: Laboratory Results - last 24 hr 06/04/24 08:00 Sodium 143 Potassium 4.0 Chloride 112 H Carbon Dioxide 24 BUN 19 H Creatinine 0.95 Estimated GFR > 60 BUN/Creatinine Ratio 20.0 Glucose 121 H Calcium 10.0 PFSH Medical History Dysphagia Diffuse lung disease Primary thyroid malignancy Neurofibromatosis, type I (von Recklinghausen's disease) Surgical History History of hysterectomy (~1977) History of section History of surgery History of surgery (2009) Social History marital status: number of children: 2 household members: spouse lives independently: Yes caregiver/support person: No housing: house Smoking Status: Never smoker second hand exposure: No alcohol intake: never substance use type: does not use Assessment & Plan Assessment & Plan narrative: 73yo woman with neurofibromatosis, esophageal stricture requiring multiple dilation procedures, hyperlipidemia, macular degeneration here with small bowel obstruction. 1) Small bowel obstruction: s/p Gastrografin study, now with passage of stool - Advance diet as tolerated - Zofran PRN for nausea 2) Hyperlipidemia: - Continue statin Code: Full DVT ppx: SCDs Diet: Clears this morning, advancing Dispo: Anticipate discharge tomorrow morning, if not this evening. Time-Based Coding :: [TOTAL MINUTES] spent with patient and on the chart (including review of chart, obtaining history, exam, reviewing outside data, placing orders, documenting exam and treatment plan, and counseling patient) on [DATE]. PROFEE Charge codes Subsequent inpatient/observation care: 97056
[2024-06-04] MEDS: PANTOPRAZOLE DR 20 MG TABLET PO (09:40)
[2024-06-04 12:00] VITALS: BP 138/75; PULSE 90; RESP 16; TEMP 36.7; O2SAT 94
[2024-06-04 18:00] VITALS: BP 143/71; PULSE 90; RESP 16; TEMP 36.6; O2SAT 99
[2024-06-04 20:34] VITALS: BP 141/75; PULSE 85; RESP 18; TEMP 36.9; O2SAT 92
[2024-06-05 00:46] VITALS: BP 145/74; PULSE 83; RESP 16; TEMP 36.8; O2SAT 95
[2024-06-05] MEDS: PANTOPRAZOLE DR 40 MG TABLET PO (05:39)
[2024-06-05 06:00] VITALS: BP 121/70; PULSE 73; RESP 16; TEMP 36.7; O2SAT 93
[2024-06-05 08:00] VITALS: BP 133/77; PULSE 79; RESP 18; TEMP 36.8; O2SAT 94
--- NOTE | 2024-06-05 08:54 | PM.PN.1 ---
Subjective Subjective Date Patient Seen: 06/05/24 Time Patient Seen: 08:54 Interval history: Patient is eating a regular breakfast without nausea or vomiting. She does feel occasional need to belch. She states she is passing flatus regularly and had a bowel movement yesterday. No abdominal pain. No chest pain, shortness of breath. No lightheadedness or dizziness. No difficulty with ambulation. No change in family history, social history, past medical history. Exam Vital Signs (past 8 hours): - 06/05/24 06:00 06/05/24 08:00 Temperature 98.0 F 98.2 F Pulse Rate 73 79 Respiratory Rate 16 18 Blood Pressure 121/70 133/77 Pulse Oximetry 93 94 Oxygen Flow Rate 0 0 Oxygen Delivery Method Room Air Oxygen Flow Rate 0 Narrative Exam Narrative: Gen: NAD, sitting comfortably in bed, appears well HEENT: Sclera are anicteric, head is normocephalic and atraumatic, trachea is midline. CV: RRR, no JVD Resp: clear to auscultation bilaterally, equal chest wall movement bilaterally Abd: soft, nontender, normoactive bowel sounds Ext: no edema, full range of motion Neuro: Cranial nerves II-XII grossly intact, no focal deficits Skin: No erythema or ecchymosis Objective Labs 06/03/24 03:18 06/04/24 08:00 [facility] Medical History Dysphagia Diffuse lung disease Primary thyroid malignancy Neurofibromatosis, type I (von Recklinghausen's disease) Surgical History History of hysterectomy (~1977) History of section History of surgery History of surgery (2009) Social History marital status: number of children: 2 household members: spouse lives independently: Yes caregiver/support person: No housing: house Smoking Status: Never smoker second hand exposure: No alcohol intake: never substance use type: does not use Assessment & Plan Assessment and plan (1) Small bowel obstruction: Status: Acute Assessment & Plan narrative: 73-year-old woman prior abdominal surgery history of neurofibromatosis admitted with a small-bowel obstruction. CT and labs reviewed. No immediate indication for surgical intervention. Patient had bowel movement after Gastrografin challenge. Seems to be reliably passing gas. Continue diet as tolerated. Recommend plenty of liquids and avoiding significant fiber for the next 2 weeks Time-Based Coding :: [TOTAL MINUTES] spent with patient and on the chart (including review of chart, obtaining history, exam, reviewing outside data, placing orders, documenting exam and treatment plan, and counseling patient) on [DATE]. PROFEE Charge codes Subsequent inpatient/observation care: 22746
--- NOTE | 2024-06-05 09:57 | PM.DS.1 ---
History of Present Illness History of Present Illness Date Patient Seen: 06/05/24 Time Patient Seen: 09:57 Chief complaint: abd pain Narrative: 73-year-old female with history of neurofibromatosis, esophageal stricture requiring multiple dilation procedures, hyperlipidemia, macular degeneration admitted as cross cover for Dr. Hollins. Patient presented to ER at approximately 3:00 a.m. this morning with report of 8 hours severe mid epigastric pain and nausea that had started around 7:00 p.m. that evening and continue to worsen. She has a history of bleeding neurofibromas in her small intestine years ago that required surgical removal of a portion of small bowel. Daughter, who was at bedside, reports patient has undergone 30-40 surgeries over the course of her life to remove neurofibromas in different parts of her body. ER workup notable for what WBC 10.5, hemoglobin 16.4, platelets 284, sodium 140, potassium 3.9, creatinine 0.84, LFTs normal. CT abdomen/pelvis revealed small bowel obstruction with transition in the mid to lower abdomen just left of the midline. Dr. Abdullahi (General Surgery) contacted from ER and recommended admission with surgical consultation. At time of initial evaluation daughter is at bedside awaiting patient transport for Gastrografin challenge imaging. Patient nauseous with moderate amount of vomiting oral contrast and bile. Reports pain adequately controlled with IV hydromorphone.{from Dr. Narvaez's H&P 06/03/2024} Discharge Providers Provider Date of admission: 06/03/24 04:57 Discharge Date: 06/05/24 Primary care physician: Lashaun Hollins MD Consults: 06/03/24 04:57 Consult to General Surgery Stat Comment: Consulting Provider: Bebo Abdullahi Reason for consultation: SBO Has provider been notified: Yes Discharge provider: Cheikh Horvath MD Summary Hospital Course Discharge Diagnosis: 1. Partial small bowel obstruction, resolved 2. 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 She did not require placement in an NG-tube. She was seen in consultation by surgery who recommended a Gastrografin small-bowel series and in effort to try and resolve her obstruction as well to assess the complete verses partial nature of her obstruction. This did seem to resolve her obstruction and she was able to have flatus and eventually passed all of the Gastrografin. She also had significant upper GI symptoms following the administration of the Gastrografin with persistent emesis, question related to the Gastrografin itself verses the obstructive process She was re fed given the clinical improvement. She had no increased symptoms with re feeding and was felt to be stable for discharge home by the morning of the 05 of June. She was counseled to avoid any high-fiber containing foods and complex foods for the next 7-14 days at a minimum and to work on significantly increasing fluid intake during this timeframe as well. Status at Discharge Cognitive/behavioral status at discharge: at baseline, oriented Functional status at discharge: independent ambulation Overall status at discharge: patient is progressing back to baseline Time Spent with Patient Time spent: Less than 30 minutes Exam Vital Signs (past 8 hours): - 06/05/24 06:00 06/05/24 08:00 Temperature 98.0 F 98.2 F Pulse Rate 73 79 Respiratory Rate 16 18 Blood Pressure 121/70 133/77 Pulse Oximetry 93 94 Oxygen Flow Rate 0 0 Oxygen Delivery Method Room Air Oxygen Flow Rate 0 Objective Labs 06/03/24 03:18 06/04/24 08:00 [facility], [facility] Medical History Irritable bowel syndrome (10/28/11) Exudative age-related macular degeneration, left eye, with inactive choroidal neovascularization Chronic sinusitis of both maxillary sinuses Insomnia Depression GERD (gastroesophageal reflux disease) Neurofibromatosis (10/28/11) Diffuse lung disease Primary thyroid malignancy Neurofibromatosis, type I (von Recklinghausen's disease) Surgical History History of hysterectomy (~1977) History of section History of surgery History of surgery (2009) Social History marital status: number of children: 2 household members: spouse lives independently: Yes caregiver/support person: No housing: house Smoking Status: Never smoker second hand exposure: No alcohol intake: never substance use type: does not use Discharge Assessment & Plan Assessment and Plan Plan of Treatment: Patient will go home with a limited oral intake to avoiding complex solids and fiber supplements at this time. She will increase fluid intake. Over the next 7-14 days she may slowly increase her diet to more complex foods She will need to be seen by her PCP in approximately 10-14 days for follow-up Continue all of her usual medications etcetera Discharge Plan Discharge Plan Patient Disposition: Home Discharge orders & Medications Prescriptions: Continued (DME) blood-glucose meter [Blood Glucose Monitoring] Kit See Rx Instructions .Route Qty: 1 0RF Rx Instructions: Use to test blood sugar daily as directed (DME) Blood Glucose Test Strip See Rx Instructions .Route Qty: 50 0RF Rx Instructions: Use to test blood sugar daily as directed (DME) lancets Misc See Rx Instructions .Route Qty: 100 0RF Rx Instructions: Use to test blood sugar daily as directed ofloxacin 0.3 % drops 5 drp otic (ear) BID Qty: 10 1RF Combivent Respimat 20-100 mcg/actuation mist 1 puff INHALATION QID PRN (Reason: dyspnea) Qty: 4 5RF Rx Instructions: space evenly during waking hours simvastatin 20 mg tablet 20 mg PO DAILY Qty: 90 1RF multivitamin capsule 1 cap PO DAILY Elderberry 1 dose PO DAILY I-Caps 1 cap PO DIRECTED Vitamin B liquid 1 dose PO DAILY ascorbic acid (vitamin C) 1 tab PO DAILY Follow up/Referrals: Lashaun Hollins MD [Primary Care Provider] - 2 Weeks Discharge Health Status Multidrug resistant organism: No MDRO Diet/Activity/Treatments Diet: Diet as Tolerated Diet comment: low fiber, lots of liquids Skin/Wound/Dressing Care Report to your healthcare provider any signs of infection, such as:: increased pain Visit Report/Discharge Packet Stand Alone Forms: Patient Portal/API Discharge Data Primary Care Provider: Lashaun Hollins Charge Codes Discharge inpatient/observation: [id number]
--- NOTE | 2024-06-05 16:20 | CM.DPC ---
DCP Discharge Home Per MD, pt tolerated advancing diet and ambulating and having bm and medically stable to d/c home with outpt f/u and no identified barriers to discharge. Per RN, pt's Dtr bedside and present for d/c instructions and provided transport home with no concerns noted. BRADEN Monteiro
== END 2024-06-05 12:30 | disposition home or self-care (01) | DRG 390 ==
LOC: ED 04:57 → AC 09:08
PROVIDERS: Admitting Provider Family Medicine; Emergency Provider Emergency Medicine; PCP Family Medicine; Visit Provider Family Medicine
DX: K56.609 Unspecified intestinal obstruction, unspecified as to partial versus complete obstruction (principal); Q85.01 Neurofibromatosis, type 1; R13.10 Dysphagia, unspecified; E78.5 Hyperlipidemia, unspecified; Z87.19 Personal history of other diseases of the digestive system; Z98.890 Other specified postprocedural states
CPT/HCPCS: 36415; 74018; 74176; 80048; 80053; 81003; 81015; 83605; 83690; 85025; 87086; 96361; 96374; 96375; 99284; 99285; J1171; J2405; J2470; J2765

== ENCOUNTER → 2024-06-16 11:18 | Outpatient (CLI) | payer MEDICARE, MEDICAID, SELFPAY ==
[2024-06-03 06:08] VITALS: BMI 25.9
[2024-06-16 12:32] LABS: Hemoglobin A1C% w Est Avg Glu 5.6 % (4.0-6.0)
[2024-06-16 12:41] LABS: Cholesterol 223 mg/dL (140-199); HDL Cholesterol 45 mg/dL (40-60); LDL Cholesterol Calculated 151 mg/dL (<100); Triglycerides 133 mg/dL (35-150)
[2024-06-16 13:10] LABS: Thyroid Stimulating Hormone 1.99 uIU/mL (0.47-4.68)
== END ==
PROVIDERS: PCP Family Medicine; Referring Provider Family Medicine; Visit Provider Family Medicine
DX: R63.4 Abnormal weight loss (principal); E78.5 Hyperlipidemia, unspecified
CPT/HCPCS: 36415; 80061; 83036; 84443

== ENCOUNTER → 2024-12-27 09:53 | Outpatient (CLI) | payer OTHER, MEDICAID, SELFPAY ==
[2024-06-03 06:08] VITALS: BMI 25.9
[2024-12-27 11:09] LABS: Hemoglobin A1C% w Est Avg Glu 5.3 % (4.0-6.0)
== END ==
PROVIDERS: PCP Family Medicine; Referring Provider Family Medicine; Visit Provider Family Medicine
DX: Z13.1 Encounter for screening for diabetes mellitus (principal)
CPT/HCPCS: 36415; 83036

== ENCOUNTER → 2025-02-10 13:05 | Outpatient (CLI) | payer OTHER, MEDICAID, SELFPAY ==
[2024-06-03 06:08] VITALS: BMI 25.9
--- NOTE | 2025-02-10 13:07 | DI.RAD.S_ITS ---
PROCEDURE: XR TOE RT MIN 2V INDICATIONS: crush injury to tip of toe TECHNIQUE: 3 views of the right 1st toe(s) acquired. COMPARISON: None. FINDINGS: Bones: Diffuse osteopenia. There is a minimally displaced fracture involving the base of the right great toe distal phalanx with possible extension to the interphalangeal joint. Overlying soft tissue edema. Remainder of the visualized osseous structures appear intact. Soft tissues: No suspicious soft tissue densities. IMPRESSION: Minimally displaced fracture involving the base of the right great toe distal phalanx with possible extension to the 1st interphalangeal joint. Dictated by: Jason Henderson M.D. on 02/10/2025 at 14:02 Approved by: Jason Henderson M.D. on 02/10/2025 at 14:03
== END ==
PROVIDERS: PCP Family Medicine; Referring Provider Family Medicine; Visit Provider Physician Assistant
DX: S92.424A Nondisplaced fracture of distal phalanx of right great toe, initial encounter for closed fracture (principal); X58.XXXA Exposure to other specified factors, initial encounter
CPT/HCPCS: 73660